=== PATIENT | male | born 1945 | race Caucasian/White ===

== ENCOUNTER 2019-11-18 11:54 | Outpatient (CLI) | payer MEDICARE, OTHER, SELFPAY ==
--- NOTE | ~2019-11-18 | XR_ITS ---
EXAMINATION: XR cervical spine 4-5V DATE: 11/18/2019 12:22 INDICATION: Neck pain. TECHNIQUE: 5 views of cervical spine were obtained. COMPARISON: None. FINDINGS: There is 19 degrees levoscoliosis of cervicothoracic spine. There is kyphosis of the inferi or cervical spine. There is 2 mm anterolisthesis of C4 on C5 and C5 on C6. There is interbody fusion at C5-C6 and C6-C7. There is mildly decreased disc height at C3-C4 and C4-C5. There is multilevel fac et joint osteoarthritis, severe on the left at C3-C4 and C4-C5 and on the right at C2-C3, C3-C4, and C4-C5. On the right, there is mild neural foraminal stenosis at C2-C3 and C4-C5 and moderate neural f oraminal stenosis at C3-C4. On the left, there is mild neural foraminal stenosis at C3-C4 and moderat e neural foraminal stenosis at C4-C5. There is mild central canal stenosis at C4-C5 and C5-C6. No pre vertebral soft tissue swelling. IMPRESSION: 1. Moderate cervical spondylosis. 2. Interbody fusion at C5-C6 and C6-C7. 3. Cervicothoracic levoscoliosis. Reviewed, dictated and finalized at location A.
== END 2019-11-18 11:55 | disposition home or self-care (01) ==
LOC: ANHIMG 12:06
PROVIDERS: PCP Family Medicine; Visit Provider Family Medicine
DX: M47.892 Other spondylosis, cervical region (principal); Z98.1 Arthrodesis status
CPT/HCPCS: 72050

== ENCOUNTER 2020-03-08 15:42 | Outpatient (CLI) | payer MEDICARE, OTHER, SELFPAY ==
--- NOTE | ~2020-03-08 | CT_ITS ---
EXAMINATION:CT lung screening DATE: 03/08/2020 16:11 INDICATION: Personal history of tobacco dependence. TECHNIQUE: Computed tomography (CT) of the chest was performed without intravenous contrast. Automate d exposure control and iterative reconstruction technique were employed. The dose-length product (DLP ) was 157.13 mGy-cm. COMPARISON: Chest CT 01/23/2019 FINDINGS: There is moderate emphysema. There are widespread peripheral reticular opacities in the georgette gs. There are subpleural bands in the lower lobes. There is mild bronchiectasis in the lower lobes. C alcified right lung nodules and calcified right hilar lymph nodes are consistent with old granulomato us disease. No pleural effusion. The heart size is normal. 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 There are coronary artery ca lcifications. No pericardial effusion. Calcifications in the spleen are consistent with old granuloma tous disease. There are healing fractures of the right eighth and ninth ribs. There are bridging endp late osteophytes at multiple levels in the spine, consistent with diffuse idiopathic skeletal hyperos tosis (DISH). There is mild chronic anterior wedging of multiple vertebral bodies. IMPRESSION: 1. Lung-RADS category 2: Benign appearance or behavior. Continue annual screening with noncontrast lo w-dose chest CT in 12 months. Reviewed, dictated and finalized at location A. IMPRESSION: 1. Lung-RADS category 2: Benign appearance or behavior. Continue annual screeni ng with noncontrast low-dose chest CT in 12 months.
== END 2020-03-08 15:43 | disposition home or self-care (01) ==
PROVIDERS: PCP Family Medicine; Visit Provider Family Medicine
DX: Z12.2 Encounter for screening for malignant neoplasm of respiratory organs (principal); Z87.891 Personal history of nicotine dependence
CPT/HCPCS: G0297

== ENCOUNTER 2020-11-13 15:50 | Emergency (ER) | payer MEDICARE, OTHER, SELFPAY ==
[2020-11-13] VITALS (12 sets, daily range): BP systolic 83–125; BP diastolic 57–78; PULSE 78–90; RESP 16–25; TEMP 36.8–37.2; O2SAT 96–99
--- NOTE | ~2020-11-13 | XR_ITS ---
EXAMINATION: XR chest 1V portable DATE: 11/13/2020 21:01 INDICATION: Found on ground by neighbors. Weakness. TECHNIQUE: frontal view of the chest was obtained. COMPARISON: Chest radiograph dated 06/03/2017 FINDINGS: Mild streaky opacities at the lateral lower lung zones and favor atelectasis or less likely mild pulm onary edema over pneumonia. No pleural effusion or pneumothorax. Cardiomediastinal silhouette is with in normal limits for AP technique. IMPRESSION: 1. Mild streaky bibasilar opacities with differential in order of likelihood including atelectasis, m ild pulmonary edema and pneumonia. Reviewed, dictated and finalized at location A. IMPRESSION: 1. Mild streaky bibasilar opacities with differential in order of likelihood in cluding atelectasis, mild pulmonary edema and pneumonia.
--- NOTE | ~2020-11-13 | CT_ITS ---
EXAMINATION: CT brain wo con DATE: 11/13/2020 21:14 INDICATION: Unwitnessed fall presenting with weakness and vertigo TECHNIQUE: Computed tomography (CT) of the head was performed without intravenous contrast. Sagittal and coronal reconstructions were performed. The mA was adjusted according to patient size. Iterative reconstruction technique was employed. The dose-length product was 605.33 mGy-cm. COMPARISON: head CT dated 12/25/2013 FINDINGS: No fracture. No acute intracranial hemorrhage, acute infarction or abnormal extra axial fluid collect ion. There is mild to moderate scattered white matter hypoattenuation consistent with chronic small v essel ischemic disease. Symmetric prominence of the sulci and ventricles consistent with mild age-kenny ropriate diffuse cerebral volume loss. No mass/mass effect. Intracranial calcified cerebral atheroscl erosis is noted. The orbits, paranasal sinuses and mastoid air cells are normal. IMPRESSION: 1. No fracture or acute intracranial process. 2. Age-related changes including mild diffuse volume loss and mild to moderate scattered white matter hypoattenuation consistent with chronic small vessel ischemic disease. Reviewed, dictated and finalized at location A. IMPRESSION: 1. No fracture or acute intracranial process. 2. Age-related changes including mild diffuse volume loss and mild to moderate scattered white matter hypoattenuation consistent with chronic small vessel isc hemic disease.
--- NOTE | 2020-11-13 15:58 | ECG_ITS ---
Measurements Intervals [place] Rate: 85 P: 52 IN: 188 QRS: -1 QRSD: 87 T: 24 QT: 350 QTc: 417 Interpretive Statements SINUS RHYTHM LOW VOLTAGE- PRECORDIAL LEADS MINIMAL Q WAVES- ANTERIOR LEADS CONSIDER INFERIOR INFARCT, AGE INDETERMINATE BORDERLINE T WAVE ABNORMALITY- ANTEROLATERAL LEADS ABNORMAL ECG Electronically Signed On 11-13-2020 16:30:31 CDT by Erik Jordan D.O.
[2020-11-13 16:27] LABS: Basophils Percent Auto 0.4 % (0.2-1.2); Eosinophils Absolute Auto 0.1 K/mm3 (0-0.3); Eosinophils Percent Auto 0.9 % (0-4.4); Hematocrit 47.7 % (42.0-52.0); Hemoglobin 16.1 g/dL (14.0-18.0); Immature Granulocyte Absolute 0.04 K/mm3 (0.00-0.031); Immature Granulocyte Percent A 0.4 % (0-0.5); Lymphocytes Absolute Auto 0.67 K/mm3 (0.9-3.2); Lymphocytes Percent Auto 6.9 % (18.3-44.2); Mean Corpuscular HGB Conc 33.8 g/dl (32-36); Mean Corpuscular Hemoglobin 30.3 pg (26-34); Mean Corpuscular Volume 89.8 fl (80-100); Mean Platelet Volume 9.9 fl (7.4-10.4); Monocytes Absolute Auto 0.5 K/mm3 (0.1-0.6); Monocytes Percent Auto 5.3 % (2.6-8.5); Neutrophils Absolute Auto 8.3 K/mm3 (1.3-6.7); Neutrophils Percent Auto 86.1 % (45.5-73.1); Platelet Count Result 209 k/mm3 (150-375); Red Blood Count 5.31 M/mm3 (4.6-6.20); Red Cell Distribution Width 13.2 % (11.5-14.5); White Blood Count 9.7 K/mm3 (4.5-10.0)
[2020-11-13 17:11] LABS: Anion Gap 10 mmol/L (8-16); Blood Urea Nitrogen 17 mg/dL (9-20); Calcium 9.5 mg/dL (8.4-10.2); Carbon Dioxide 26 mmol/L (22-30); Chloride 103 mmol/L (98-107); Estimated CRCL calculation 58 ml/min; Estimated Glomerular Filt Rate > 60; Glucose 124 mg/dL (75-110); Potassium 4.4 mmol/L (3.4-5.0); Sodium 139 mmol/L (137-145)
[2020-11-13 20:39] LABS: Troponin I < 0.012 ng/mL (0.000-0.034)
[2020-11-13] MEDS: SODIUM CHLORIDE 0.9% IV 1,000 ML 999 ML IV CONT ×2 (21:00→21:57)
[2020-11-13 21:03] LABS: Creatine Kinase 57 U/L (55-170)
--- NOTE | 2020-11-13 21:06 | PC.NURSE ---
Called and spoke to charissa in lab to add on CK @ [id number]
[2020-11-13 22:12] LABS: Add Urine Microscopic? YES; Appearance Urine Clear (Clear); Bacteria Urine Trace /hpf; Bilirubin Urine Negative (Negative); Blood Urine 2+ (Negative); Color Urine Yellow (Yellow); Glucose Urine UA Negative (Negative); Ketones Urine Negative (Negative); Leukocyte Esterase Ur Negative LEU/UL (Negative); Mucus Urine Rare /lpf; Nitrate Urine Negative (Negative); Protein Urine Negative (Negative); RBC Urine 0-2 /hpf (0-2); Specific Grav Ur 1.021 (1.001-1.035); Urobilinogen Urine Negative mg/dL (<2.0); WBC Urine 0-3 /hpf
--- NOTE | 2020-11-13 22:30 | PC.NURSE ---
Pt. able to ambulate around ed w/ steady gait.
--- NOTE | 2020-11-13 23:50 | ED.GENADULT ---
HPI - General Adult General Chief complaint: Syncope <Red Contreras PA-C - Last Filed: 11/13/20 23:57> Stated complaint: Syncopal Episode <Red Contreras PA-C - Last Filed: 11/13/20 23:57> Time Seen by Provider: 11/13/20 20:01 <Red Contreras PA-C - Last Filed: 11/13/20 23:57> Source: patient, family and RN notes reviewed <Red Contreras PA-C - Last Filed: 11/13/20 23:57> Mode of arrival: ambulatory <Red Contreras PA-C - Last Filed: 11/13/20 23:57> Limitations: dementia <Red Contreras PA-C - Last Filed: 11/13/20 23:57> History of Present Illness HPI narrative: Patient is a 75-year-old male who presents to emergency department after possible syncopal episode was found by a neighbor down in the yard patient was at home by himself has history of Alzheimer's dementia his was at work typically does okay at home by himself but did have his Covid vaccine yesterday patient on arrival is alert and oriented x2 patient denying any pain or other symptoms his notes that he is slightly more confused than normal which she can have at times when he is tired patient is otherwise been fine per family and has otherwise been well <Red Contreras PA-C - Last Filed: 11/13/20 23:57> Related Data Allergies/adverse reactions: Allergies Allergy/AdvReac Type Severity Reaction Status Date / Time No Known Allergies Allergy Verified 11/13/20 20:04 <Red Contreras PA-C - Last Filed: 11/13/20 23:57> Review of Systems Review of Systems: All systems reviewed & are unremarkable except as noted in HPI and below <Red Contreras PA-C - Last Filed: 11/13/20 23:57> [facility] Past Medical History Medical History: Medical History (Updated 11/15/20 @ 00:00 by Heather Ortiz) Alzheimer's disease Hypertension <Red Contreras PA-C - Last Filed: 11/13/20 23:57> Social History Social History: Social History (Updated 11/13/20 @ 23:52 by Red Contreras PA-C) Smoking status: Never smoker Gender identity (if verbalized by the patient): Male <Red Contreras PA-C - Last Filed: 11/13/20 23:57> Exam Narrative: Exam Narrative: GENERAL: Well-appearing, well-nourished, and in no acute distress. HEAD: Normocephalic, atraumatic. EYES: PERRLA and EOMI. ENT: Nares clear, no rhinorrhea or epistaxis. Mucous membranes moist. NECK: Supple. No adenopathy or masses. CHEST: Clear to auscultation. No respiratory distress. No wheezes rales or rhonchi HEART: Regular rate and rhythm. No murmur heard. Normal peripheral pulses. ABDOMEN: Soft, nontender, nondistended EXTREMITIES: Normal range of motion. No edema. SKIN: Warm, dry, no rash. NEURO: No focal deficits. Alert and oriented x3. Cranial nerves II through XII grossly intact. Normal speech and gait PSYCH: Normal mood and affect. <Red Contreras PA-C - Last Filed: 11/13/20 23:57> Course Course Emergency Course: Patient evaluated in the emergency department no high risk changes in the evaluation was given 2 L of normal saline patient and his are in the room she feels comfortable to take him home ABCs and vital signs intact and stable patient was offered inpatient therapy but she feels comfortable to take him home and will stay home with him tomorrow. Patient does not have any URI symptoms on exam felt unlikely to be pneumonia. Patient is not showing any signs of heart failure at this time. <Red Contreras PA-C - Last Filed: 11/13/20 23:57> Vital Signs Vital signs: Vital Signs Temperature 37.2 C 11/13/20 16:10 Pulse Rate 87 11/13/20 16:10 Respiratory Rate 16 11/13/20 16:10 Blood Pressure 110/57 L 11/13/20 16:10 Pulse Oximetry 97 11/13/20 16:10 Temperature 36.8 C 11/13/20 19:59 Pulse Rate 78 11/14/20 00:00 Respiratory Rate 28 H 11/14/20 00:00 Blood Pressure 107/65 11/14/20 00:00 Pulse Oximetry 98 11/14/20 00:00 <Red Contreras PA-C - Last File
[2020-11-14] VITALS: BP 107/65; PULSE 78; RESP 28; O2SAT 98
== END 2020-11-14 | disposition home or self-care (01) ==
PROVIDERS: Emergency Medicine Emergency Medical Services; Emergency Provider Emergency Medicine; PCP Family Medicine
DX: R55 Syncope and collapse (principal); G30.9 Alzheimer's disease, unspecified; F02.80 Dementia in other diseases classified elsewhere, unspecified severity, without behavioral disturbance, psychotic disturbance, mood disturbance, and anxiety; I10 Essential (primary) hypertension; R91.8 Other nonspecific abnormal finding of lung field; R94.31 Abnormal electrocardiogram [ECG] [EKG]
CPT/HCPCS: 36415; 70450; 71045; 80048; 81001; 82550; 84484; 85025; 93005; 96360; 99284; J7030

== ENCOUNTER 2021-02-25 08:37 | Outpatient (CLI) | payer MEDICARE, OTHER, SELFPAY ==
--- NOTE | ~2021-02-25 | CT_ITS ---
EXAMINATION: CT abdomen pelvis wo con EXAM DATE: 02/25/2021 09:38 INDICATION: Microscopic hematuria. TECHNIQUE: Spiral CT of the abdomen and pelvis was performed without contrast. Axial, coronal and sag ittal images were reviewed. The dose-length product (DLP) for this examination was 319.16 mGy-cm. T he exposure was tailored according to patient size (auto mA exposure control), and iterative reconstr uction (ASIR) was used as additional dose reduction technique. Comparison is made to prior examinatio n from 12/13/2017. FINDINGS: There is no nephrolithiasis or hydronephrosis. The prostate is unremarkable. The bladder is unremarkable. The liver, spleen, adrenal glands and pancreas are unremarkable. Gallbladder is u nremarkable. No biliary obstruction. There is no retroperitoneal or pelvic lymphadenopathy. There is moderate scattered arteriosclerotic disease. Small umbilical fat-containing hernia. The appendix is normal. The stomach and small bowel are unremarkable. There is expected amount of c olonic stool. No free intraperitoneal gas. The heart is normal in size. There are no pericardial or pleural effusions. Basilar subpleural banding. There are no osteoblastic or osteolytic lesions identified. There is right hip arthroplasty. IMPRESSION: No nephrolithiasis, hydronephrosis or acute intra-abdominal findings. Reviewed, dictated and finalized at location B. IMPRESSION: No nephrolithiasis, hydronephrosis or acute intra-abdominal finding s.
== END 2021-02-25 08:38 | disposition home or self-care (01) ==
LOC: ANHIMG 08:42
PROVIDERS: PCP Family Medicine; Visit Provider Urology
DX: R31.29 Other microscopic hematuria (principal); K42.9 Umbilical hernia without obstruction or gangrene
CPT/HCPCS: 74176

== ENCOUNTER 2021-04-23 17:21 | Outpatient (CLI) | payer MEDICARE, OTHER, SELFPAY ==
--- NOTE | ~2021-04-23 | XR_ITS ---
EXAMINATION: XR hip RT min 2V DATE: 04/23/2021 17:45 INDICATION: Lateral right hip pain post fall TECHNIQUE: Anteroposterior and cross-table lateral views of the right hip were obtained. COMPARISON: CT dated 02/25/2021 FINDINGS: Noncemented right total hip arthroplasty in near anatomic alignment. No evident asymmetric polyethyle ne liner wear. There is small amount of increased lucency with separation of the prosthesis from the thin sclerotic bone margin of the to 3 mm in Gruen zone 8 along the anterior margin of the proximal f emoral stem. No abnormal lucency along the acetabular component. No fracture. Mild lower lumbar spond ylosis. A few phleboliths in the left hemipelvis. IMPRESSION: 1. Right total hip arthroplasty with mild increased periprosthetic lucency isolated to Gruen zone 8 w hich raises some suspicion for but is not diagnostic of loosening. Recommend correlation with any regla or postoperative imaging. 2. No acute osseous abnormality. Reviewed, dictated and finalized at location A. ER AUTOMATIC IMPRESSION: 1. Right total hip arthroplasty with mild increased periprosthetic lucency isol ated to Gruen zone 8 which raises some suspicion for but is not diagnostic of l oosening. Recommend correlation with any prior postoperative imaging. 2. No acute osseous abnormality.
== END 2021-04-23 17:22 | disposition home or self-care (01) ==
LOC: ANHIMG 17:28
PROVIDERS: PCP Family Medicine; Visit Provider Family Medicine
DX: S79.911A Unspecified injury of right hip, initial encounter (principal)
CPT/HCPCS: 73502

== ENCOUNTER 2021-07-21 17:36 | Inpatient (IN) | payer MEDICARE, OTHER, SELFPAY ==
--- NOTE | ~2021-07-21 | XR_ITS ---
EXAMINATION: XR hip RT 2V w AP pelvis DATE: 07/21/2021 19:58 INDICATION: Right-sided hip pain post fall TECHNIQUE: Anteroposterior view of the pelvis and anteroposterior and frog-leg lateral views of the r ight hip were obtained. COMPARISON: None. FINDINGS: Right total hip arthroplasty which appears unchanged in near-anatomic alignment. No periprosthetic gama cency to suggest loosening. No fracture. Mild left hip osteoarthritis. Mild lower lumbar spondylosis. Phleboliths in the left hemipelvis. IMPRESSION: 1. Stable appearance of a right total hip arthroplasty. No acute osseous abnormality. Reviewed, dictated and finalized at location A. LE CARRIER IMPRESSION: 1. Stable appearance of a right total hip arthroplasty. No acute osseous abnorm ality.
--- NOTE | ~2021-07-21 | XR_ITS ---
EXAMINATION: XR chest 1V portable DATE: 07/21/2021 20:49 INDICATION: Anticoagulated individual with early onset of dementia post fall TECHNIQUE: frontal view of the chest was obtained. COMPARISON: Chest radiograph dated 11/13/2020 and 03/08/2020 FINDINGS: Consider mild linear opacities in the right mid to lower and left lower lung zones consistent with di scoid atelectasis/scarring. No new airspace opacities, pulmonary edema, pleural effusion or pneumotho rax. The cardiomediastinal silhouette is normal. Old healed right eighth and ninth rib fractures. IMPRESSION: 1. No significant change in scattered linear discoid atelectasis/scarring the right mid and bilateral lower lung zones Reviewed, dictated and finalized at location A. NISTRATIVE FELLOW IMPRESSION: 1. No significant change in scattered linear discoid atelectasis/scarring the r ight mid and bilateral lower lung zones
--- NOTE | ~2021-07-21 | CT_ITS ---
EXAMINATION: CT brain wo con DATE: 07/21/2021 20:07 INDICATION: Dementia presenting post fall. TECHNIQUE: Computed tomography (CT) of the head was performed without intravenous contrast. Sagittal and coronal reconstructions were performed. The mA was adjusted according to patient size. Iterative reconstruction technique was employed. The dose-length product was 605.33 mGy-cm. COMPARISON: head CT dated 11/13/2020 FINDINGS: Fracture. No acute intracranial hemorrhage, acute infarction or abnormal extra axial fluid collection . There is mild to moderate scattered white matter hypoattenuation consistent with chronic small vess el ischemic disease. Symmetric prominence of the sulci and ventricles consistent with mild age-approp riate diffuse cerebral volume loss. No mass/mass effect. The orbits and mastoid air cells are normal . Mild mucosal thickening the left ethmoid and right maxillary sinuses. IMPRESSION: 1. No fracture or acute intracranial process. 2. Age-related changes including mild diffuse volume loss and mild to moderate scattered white matter hypoattenuation consistent with chronic small vessel ischemic disease. Reviewed, dictated and finalized at location A. ER CHARGING TOOL SETTER IMPRESSION: 1. No fracture or acute intracranial process. 2. Age-related changes including mild diffuse volume loss and mild to moderate scattered white matter hypoattenuation consistent with chronic small vessel isc hemic disease.
--- NOTE | ~2021-07-21 | CT_ITS ---
EXAMINATION: CT hip RT wo con DATE: 07/23/2021 10:07 INDICATION: Right hip pain. TECHNIQUE: Computed tomography (CT) of the right hip was performed without intravenous contrast. Auto mated exposure control and iterative reconstruction technique were employed. The dose-length product was 307.43 mGy-cm. COMPARISON: Right hip radiographs 07/21/2021, CT abdomen and pelvis 02/25/21, 12/13/17 FINDINGS: There is a total right hip arthroplasty in near-anatomic alignment. There is 2.5 cm lucency adjacent to the proximal femoral component anteriorly. No fracture. IMPRESSION: 1. Total right hip arthroplasty with 2.5 mm lucency adjacent to the proximal femoral component anteri elaine, consistent with loosening, stable from 12/13/17. Reviewed, dictated and finalized at location A. CONDITIONER MACHINE IMPRESSION: 1. Total right hip arthroplasty with 2.5 mm lucency adjacent to the proximal fe moral component anteriorly, consistent with loosening, stable from 12/13/17.
--- NOTE | ~2021-07-21 | XR_ITS ---
EXAMINATION: XR knee RT 2V EXAM DATE: 07/24/2021 18:22 INDICATION: Fall, knee pain. TECHNIQUE: Frontal and lateral projections of the right knee. Comparison is made to prior examinatio n from 07/21/2021. FINDINGS: There is acute closed posttraumatic right lateral tibial plateau fracture identified on th e frontal projection. There is a moderate-sized right knee hemarthrosis. Small to moderate-sized kapoor llar enthesopathy. IMPRESSION: Acute nondisplaced right lateral tibial plateau fracture. Reviewed, dictated and finalized at location G. FING PROGRAM MANAGER
--- NOTE | ~2021-07-21 | XR_ITS ---
EXAMINATION: XR knee RT 3V DATE: 07/21/2021 18:20 INDICATION: Swelling and bruising at the anterior right knee post fall TECHNIQUE: Anteroposterior, oblique and crosstable lateral views of the right knee were obtained COMPARISON: None. FINDINGS: Alignment is normal. No fracture. Osteoarthritis with mild joint space narrowing the medial compartm ent which could be underestimated on nonweightbearing imaging. Small right knee joint effusion withou t evident layering lipohemarthrosis. Enthesophyte at the proximal pole of the patella. Mild prepatell ar soft tissue swelling. IMPRESSION: 1. Small right knee joint effusion. No acute osseous abnormality. Reviewed, dictated and finalized at location A. ESSOR OF POLITICAL SCIENCE
--- NOTE | ~2021-07-21 | CT_ITS ---
EXAMINATION: CT knee RT wo con DATE: 07/23/2021 10:07 INDICATION: Right knee pain. TECHNIQUE: Computed tomography (CT) of the right knee was performed without intravenous contrast. Aut omated exposure control and iterative reconstruction technique were employed. The dose-length product was 584.37 mGy-cm. COMPARISON: Right knee radiographs 07/21/2021 FINDINGS: There is a fracture of proximal tibia including a nondisplaced sagittal oblique fracture of lateral tibial plateau and an avulsion fracture of the posterior cruciate ligament attachment site. There is mild osteoarthritis of medial, lateral, and patellofemoral compartments. There is a moderate -sized hemarthrosis. IMPRESSION: 1. Fracture of proximal tibia including a nondisplaced sagittal oblique fracture of lateral tibial pl ateau and an avulsion fracture of the posterior cruciate ligament attachment site. 2. Mild right knee osteoarthritis. 3. Moderate-sized right knee hemarthrosis. Reviewed, dictated and finalized at location A. ING MACHINE ASSEMBLER IMPRESSION: 1. Fracture of proximal tibia including a nondisplaced sagittal oblique fractur e of lateral tibial plateau and an avulsion fracture of the posterior cruciate ligament attachment site. 2. Mild right knee osteoarthritis. 3. Moderate-sized right knee hemarthrosis.
--- NOTE | ~2021-07-21 | XR_ITS ---
EXAMINATION: XR hip RT 2V w AP pelvis EXAM DATE: 07/24/2021 18:22 INDICATION: Fall, hip pain . TECHNIQUE: Left hip frontal, 'frog leg' projections for interpretation. Frontal projection pelvis. C omparison is made to prior examination from 07/21/2021. FINDINGS: There is total right hip arthroplasty in expected position, no hardware fracture. There is moderate left hip primary osteoarthritis. There are no acute fractures identified. Calcifications in the pelvis are believed to be phleboliths. IMPRESSION: No acute pelvic or right hip fracture. Reviewed, dictated and finalized at location G. EFFICIENCY SUPERVISOR
[2021-07-21 17:38] VITALS: BP 119/62; PULSE 70; RESP 20; TEMP 36.9; O2SAT 96
[2021-07-21] MEDS: ACETAMINOPHEN 325 MG TABLET 650 MG PO (18:03)
[2021-07-21 20:03] LABS: Add Urine Microscopic? YES; Appearance Urine Clear (Clear); Bacteria Urine Trace /hpf; Bilirubin Urine Negative (Negative); Blood Urine 1+ (Negative); Color Urine Yellow (Yellow); Glucose Urine UA Negative (Negative); Ketones Urine Negative (Negative); Leukocyte Esterase Ur Negative LEU/UL (Negative); Mucus Urine Rare /lpf; Nitrate Urine Negative (Negative); Protein Urine Negative (Negative); Squamous Epithelial Cell Urine Rare /hpf (Few); Urobilinogen Urine Negative mg/dL (<2.0); WBC Urine 0-3 /hpf
--- NOTE | 2021-07-21 20:21 | ED.GENADULT ---
HPI - General Adult General Chief complaint: Extremity Injury, Lower Stated complaint: knee pain Time Seen by Provider: 07/21/21 17:37 Source: patient, family, EMS and RN notes reviewed Mode of arrival: EMS Limitations: dementia History of Present Illness HPI narrative: Patient is 76-year-old male with a history of dementia that presents with right knee injury patient was walking up the stairs when he fell forward injuring the right knee he has been unable to bear weight since he has a history of dementia and is a limited historian she notes that he has been in normal mentation since the incident denies any recent illness or other complaints and on arrival he is in the room nondistressed and does not appear uncomfortable Related Data Allergies Allergy/AdvReac Type Severity Reaction Status Date / Time No Known Allergies Allergy Verified 07/21/21 17:44 Review of Systems Review of Systems: Limited historian secondary to dementia [facility] Past Medical History Medical History Alzheimer's disease Hypertension Social History Social History Smoking status: Never smoker Gender identity (if verbalized by the patient): Male Exam Narrative: GENERAL: Well-appearing, well-nourished, and in no acute distress. HEAD: Normocephalic, atraumatic. EYES: PERRLA and EOMI. ENT: Nares clear, no rhinorrhea or epistaxis. Mucous membranes moist. NECK: Supple. No adenopathy or masses. CHEST: Clear to auscultation. No respiratory distress. No wheezes rales or rhonchi HEART: Regular rate and rhythm. No murmur heard. Normal peripheral pulses. ABDOMEN: Soft, nontender, nondistended EXTREMITIES: Tenderness of the right knee joint no deformities noted remainder of extremities palpated nontender SKIN: Warm, dry, no rash. NEURO: No focal deficits. Alert and oriented x2. Neurovascularly intact. Capillary refill less than 2 seconds PSYCH: Normal mood and affect. Course Course Emergency Course: Patient was unable to ambulate attributed to pain he will be placed in hospital given the risk and safety concerns with his unsteady gait and high likelihood for falls his leukocytosis could be stress reaction no attributable infection was identified he is afebrile nontoxic-appearing nondistressed no high risk changes in the blood work or imaging will be placed in hospital Consultations Consultation #1: Discussed case with the hospitalist who has agreed to accept the patient Date: 07/21/21 Time: 20:57 Vital Signs Vital signs: Vital Signs Temperature 98.4 F 07/21/21 17:38 Pulse Rate 70 07/21/21 17:38 Respiratory Rate 20 07/21/21 17:38 Blood Pressure 119/62 07/21/21 17:38 Pulse Oximetry 96 07/21/21 17:38 Temperature 98.4 F 07/21/21 17:38 Pulse Rate 70 07/21/21 17:38 Respiratory Rate 20 07/21/21 17:38 Blood Pressure 119/62 07/21/21 17:38 Pulse Oximetry 96 07/21/21 17:38 Medical Decision Making MDM Narrative Medical decision making narrative: Patients injury or pain is consistent with musculoskeletal etiology. No signs of neurological or vascular compromise on exam. Compartments and tisues are soft without signs of compartment syndrome. Patient was unable to ambulate unsteady on his feet given the safety concerns he will be placed in hospital he and his are agreeing with the treatment plan Vital Signs Vital Signs: Vital Signs Temperature 98.4 F 07/21/21 17:38 Pulse Rate 70 07/21/21 17:38 Respiratory Rate 20 07/21/21 17:38 Blood Pressure 119/62 07/21/21 17:38 Pulse Oximetry 96 07/21/21 17:38 Temperature 98.4 F 07/21/21 17:38 Pulse Rate 70 07/21/21 17:38 Respiratory Rate 20 07/21/21 17:38 Blood Pressure 119/62 07/21/21 17:38 Pulse Oximetry 96 07/21/21 17:38 Lab Data Result diagrams: 07/21/21 20:21 07/21/21 20:21 Labs: Lab Results
[2021-07-21 20:30] LABS: Basophils Absolute Auto 0.1 K/mm3 (0.0-0.1); Basophils Percent Auto 0.5 % (0.2-1.2); Eosinophils Absolute Auto 0.3 K/mm3 (0-0.3); Hemoglobin 15.4 g/dL (14.0-18.0); Immature Granulocyte Absolute 0.07 K/mm3 (0.00-0.031); Immature Granulocyte Percent A 0.5 % (0-0.5); Lymphocytes Absolute Auto 2.52 K/mm3 (0.9-3.2); Lymphocytes Percent Auto 16.7 % (18.3-44.2); Mean Corpuscular HGB Conc 33.5 g/dl (32-36); Mean Corpuscular Hemoglobin 30.8 pg (26-34); Mean Platelet Volume 9.7 fl (7.4-10.4); Monocytes Percent Auto 6.8 % (2.6-8.5); Neutrophils Absolute Auto 11.1 K/mm3 (1.3-6.7); Neutrophils Percent Auto 73.5 % (45.5-73.1); Platelet Count Result 220 k/mm3 (150-375); Red Cell Distribution Width 13.5 % (11.5-14.5); White Blood Count 15.1 K/mm3 (4.5-10.0)
[2021-07-21 20:50] LABS: Anion Gap 5 mmol/L (8-16); Blood Urea Nitrogen 19 mg/dL (9-20); Calcium 8.6 mg/dL (8.4-10.2); Carbon Dioxide 26 mmol/L (22-30); Chloride 105 mmol/L (98-107); Estimated CRCL calculation 53 ml/min; Estimated Glomerular Filt Rate > 60; Glucose 129 mg/dL (65-110); Potassium 3.9 mmol/L (3.4-5.0); Sodium 136 mmol/L (137-145)
[2021-07-21] MEDS: KETOROLAC 30 MG/ML VIAL (*BKC) IV PUSH (21:04)
[2021-07-21 21:48] VITALS: BP 104/50; PULSE 67; RESP 20; O2SAT 95
[2021-07-21 22:00] VITALS: BP 118/60; PULSE 70; RESP 16; TEMP 36.2; O2SAT 97
--- NOTE | 2021-07-21 22:21 | ADMGEN ---
This patient, Talat Zaragoza, was admitted to [facility] Surg Room 325-01. Patient/family oriented to hospital policies and general routines including ID bracelet, bed and alarms, visiting hours, pain management, procedures, bathroom and other care routines, personal items, smoking policy, room service/diet, and visiting hours. Information on how to activate the Rapid Response Team has been discussed. Patient/Family are encouraged to report perceived risks to care and to ask questions if they do not understand what they are told or what they should do.
[2021-07-21] MEDS: LACTATED RINGERS 1,000 ML 75 ML IV CONT (23:51)
[2021-07-22] VITALS: BP 118/60; PULSE 71; RESP 16; TEMP 36.4; O2SAT 96
[2021-07-22] MEDS: FAMOTIDINE 20 MG/2 ML VIAL IV PUSH (00:25)
--- NOTE | 2021-07-22 00:43 | PC.NURSE ---
07/21/2021 2205 pt arrived to floor stable to [facility] room 325-1. pt pleasantly confused unable to comprehend.
--- NOTE | 2021-07-22 01:58 | PC.NURSE ---
07/22/2021 0147 pt pulled out his iv while this nurse was in the room. pt continues to climb out of bed with unsteady gait.
--- NOTE | 2021-07-22 01:59 | PC.NURSE ---
07/22/2021 0150 contacted household appliance installer regarding hospitalist ordered for pt to have a sitter.
[2021-07-22 04:00] VITALS: BP 118/89; PULSE 67; RESP 16; TEMP 37.1; O2SAT 97
[2021-07-22 07:04] LABS: Basophils Absolute Auto 0.1 K/mm3 (0.0-0.1); Basophils Percent Auto 0.5 % (0.2-1.2); Eosinophils Absolute Auto 0.2 K/mm3 (0-0.3); Eosinophils Percent Auto 1.7 % (0-4.4); Hematocrit 45.4 % (42.0-52.0); Hemoglobin 15.2 g/dL (14.0-18.0); Immature Granulocyte Absolute 0.06 K/mm3 (0.00-0.031); Immature Granulocyte Percent A 0.5 % (0-0.5); Lymphocytes Absolute Auto 3.06 K/mm3 (0.9-3.2); Mean Corpuscular HGB Conc 33.5 g/dl (32-36); Mean Corpuscular Hemoglobin 30.9 pg (26-34); Mean Corpuscular Volume 92.3 fl (80-100); Mean Platelet Volume 9.9 fl (7.4-10.4); Monocytes Percent Auto 8.3 % (2.6-8.5); Neutrophils Absolute Auto 7.8 K/mm3 (1.3-6.7); Platelet Count Result 212 k/mm3 (150-375); Red Blood Count 4.92 M/mm3 (4.6-6.20); Red Cell Distribution Width 13.3 % (11.5-14.5); White Blood Count 12.2 K/mm3 (4.5-10.0)
[2021-07-22 07:17] LABS: Anion Gap 5 mmol/L (8-16); Blood Urea Nitrogen 22 mg/dL (9-20); Calcium 8.4 mg/dL (8.4-10.2); Carbon Dioxide 26 mmol/L (22-30); Chloride 106 mmol/L (98-107); Estimated CRCL calculation 49 ml/min; Estimated Glomerular Filt Rate 59; Glucose 122 mg/dL (65-110); Potassium 4.1 mmol/L (3.4-5.0); Sodium 137 mmol/L (137-145)
[2021-07-22 08:00] VITALS: BP 122/64; PULSE 85; RESP 18; TEMP 36.9; O2SAT 96
[2021-07-22 08:07] LABS: Glucose Point of Care 136 mg/dl (65-105)
[2021-07-22 09:56] VITALS: PULSE 80
[2021-07-22] MEDS: DONEPEZIL HCL 5 MG TABLET PO (09:56)
[2021-07-22] MEDS: SERTRALINE HCL 50 MG TABLET 150 MG PO (09:56)
[2021-07-22] MEDS: PRAVASTATIN SODIUM 20 MG TABLET 40 MG PO (09:56)
[2021-07-22] MEDS: MEMANTINE 10 MG TABLET PO ×2 (09:56→16:54)
[2021-07-22] MEDS: METOPROLOL SUCCINATE EXT REL 25 MG TABCR PO (09:56)
[2021-07-22] MEDS: ENALAPRIL MALEATE 2.5 MG TABLET PO (09:56)
[2021-07-22] MEDS: FAMOTIDINE 20 MG TABLET PO (11:39)
[2021-07-22 12:00] VITALS: BP 102/56; PULSE 88; RESP 20; TEMP 37.1; O2SAT 98
[2021-07-22 14:00] VITALS: PULSE 77; RESP 20; TEMP 37.1; O2SAT 97
[2021-07-22 14:02] LABS: SARS-CoV-2 RNA PCR Negative
--- NOTE | 2021-07-22 16:06 | PM.IMHP ---
H&P: HPI History of Present Illness Date/Time: 07/22/21 16:06 <Ava Ward PA-C - Last Filed: 07/22/21 16:42> Chief Complaint: Fall <Ava Ward PA-C - Last Filed: 07/22/21 16:42> Narrative: Date of admission: 07/21/2021 Date of service: 07/22/2021 Talat Zaragoza is a 76-year-old male with a history of Alzheimer's dementia, hypertension, CAD, CVA, COPD, depression, anxiety who presented to the emergency department on 07/21/2021 for evaluation following a fall at home. The patient's is at the bedside who provides history as the patient is a poor historian given his dementia. She states that he was walking up the steps in their [facility] room when he stumbled and fell, landing on right knee. His was not able to assist him, therefore she called a friend who also could not get him up, so at that time EMS was summoned. On presentation to the ED, his vital signs were stable, white blood cell count [id number], additional laboratory workup unremarkable, UA without concerns for infection, knee x-ray with small right knee joint effusion without osseous abnormalities, hip/pelvis x-ray with no acute findings, and head CT with diffuse volume loss consistent with chronic small-vessel ischemic disease but no acute intracranial findings. On my encounter with the patient, he is doing well. He does not endorse knee pain but his states that when he got up to the chair today he complained of right knee discomfort as well as right hip discomfort. She states that he has had issues with instability in the past and recently completed physical therapy in May for the same issue. Earlier this morning he was having issues with agitation and did require a patient's sitter. This improved when his arrived and she states resolved when he woke up from a nap this afternoon. The patient is being admitted to the hospitalist service for observation. Supervising physician for this history and physical is Dr. Kathy Bee <Ava Ward PA-C - Last Filed: 07/22/21 16:42> Review of Systems Review of Systems: Patient denies shortness of breath, cough, chest pain, abdominal pain, nausea, vomiting, dizziness, lightheadedness, weakness, dysuria, hematuria, urgency, frequency, diarrhea, headache, body aches, weight loss. Reports having a regular bowel movement yesterday. Appetite has been good. Completed both COVID vaccinations but has not received booster. Denies any recent sick contacts. <Ava Ward PA-C - Last Filed: 07/22/21 16:42> [facility] Past Medical History Medical History: Medical History (Updated 07/24/21 @ 14:39 by Ava Ward PA-C) Alzheimer's disease COPD (chronic obstructive pulmonary disease) Coronary artery disease CVA (cerebral vascular accident) Depression with anxiety Hypertension Neuropathy Tobacco abuse Urinary incontinence <Ava Ward PA-C - Last Filed: 07/22/21 16:42> Surgical History Surgical History: Surgical History (Updated 07/22/21 @ 16:35 by Ava Ward PA-C) H/O heart artery stent History of fusion of cervical spine History of right hip replacement 2008 <Ava Ward PA-C - Last Filed: 07/22/21 16:42> Family History Family History: Family History (Updated 07/21/21 @ 22:35 by Vania Mercer RN) Father Chronic obstructive pulmonary disease Mother Acute myocardial infarction <Ava Ward PA-C - Last Filed: 07/22/21 16:42> Social History Social History: Social History (Updated 07/22/21 @ 16:41 by Ava Ward PA-C) Social History: Mr. Zaragoza lives at home with his who assist him in his daily activities. His primary care provider is Dr. Cristo Charles. He designates his , Magdalena, as his surrogate decision maker and he would like to be a full code Smoking packs per day: 0.5 Smoking cigarettes per day: 10.0 Years smoked: 45 Smoking pack-years: 22.50 Smoking status: Current ever
[2021-07-22 16:40] LABS: Glucose Point of Care 118 mg/dl (65-105)
[2021-07-22] MEDS: OLANZapine 10 MG INJ VIAL 5 MG IM (18:47)
--- NOTE | 2021-07-22 21:40 | PC.NURSE ---
Pt was noncompliant during assessment and 2100 medication pass. Sitter present at bedside.
[2021-07-23 06:00] VITALS: BP 106/56; PULSE 66; RESP 16; TEMP 36.3; O2SAT 100
[2021-07-23 06:42] LABS: Hematocrit 44.5 % (42.0-52.0); Mean Corpuscular HGB Conc 33.7 g/dl (32-36); Mean Corpuscular Volume 91.9 fl (80-100); Mean Platelet Volume 9.9 fl (7.4-10.4); Platelet Count Result 222 k/mm3 (150-375); Red Blood Count 4.84 M/mm3 (4.6-6.20); Red Cell Distribution Width 13.3 % (11.5-14.5); White Blood Count 10.5 K/mm3 (4.5-10.0)
[2021-07-23 06:57] LABS: Hemoglobin A1C 6.1 % (<5.7)
[2021-07-23 07:02] LABS: Anion Gap 7 mmol/L (8-16); Blood Urea Nitrogen 17 mg/dL (9-20); Calcium 8.9 mg/dL (8.4-10.2); Carbon Dioxide 26 mmol/L (22-30); Chloride 107 mmol/L (98-107); Estimated CRCL calculation 53 ml/min; Estimated Glomerular Filt Rate > 60; Glucose 132 mg/dL (65-110); Potassium 4.3 mmol/L (3.4-5.0); Sodium 140 mmol/L (137-145)
[2021-07-23 08:00] VITALS: O2SAT 100
[2021-07-23 08:08] LABS: Glucose Point of Care 130 mg/dl (65-105)
[2021-07-23] MEDS: SERTRALINE HCL 50 MG TABLET 150 MG PO (08:11)
[2021-07-23] MEDS: PRAVASTATIN SODIUM 20 MG TABLET 40 MG PO (08:12)
[2021-07-23] MEDS: MEMANTINE 10 MG TABLET PO ×2 (08:12→17:27)
[2021-07-23] MEDS: DONEPEZIL HCL 5 MG TABLET PO (08:12)
[2021-07-23] MEDS: FAMOTIDINE 20 MG TABLET PO ×2 (08:12→20:51)
[2021-07-23 08:13] VITALS: PULSE 70
[2021-07-23] MEDS: ENALAPRIL MALEATE 2.5 MG TABLET PO (08:13)
[2021-07-23] MEDS: METOPROLOL SUCCINATE EXT REL 25 MG TABCR PO (08:13)
--- NOTE | 2021-07-23 09:28 | PM.IMPN ---
Progress Note: A&P Assessment and Plan (1) Fall: Code(s): W19.XXXA - Unspecified fall, initial encounter Status: Acute Assessment and Plan: Fall while walking up the stairs Patient has history of gait instability Appreciate PT/OT eval Fall precautions implemented (2) Injury of knee, right: Code(s): S89.91XA - Unspecified injury of right lower leg, initial encounter Status: Acute Assessment and Plan: Patient fell on to right knee and reported right knee pain Radiographs without findings of osseous abnormalities Discussed case with orthopedic surgeon, Dr. Salgado on 07/22. Will proceed with CT of the right knee for further evaluation in light of positive Stinchfield test, awaiting CT today Small right knee joint effusion on radiographs. Await further evaluation with knee CT Supportive care. Elevate extremity. Ice. Analgesics available as needed (3) History of right hip replacement: Code(s): Z96.641 - Presence of right artificial hip joint Status: Inactive Assessment and Plan: History of right hip replacement in 2008 Patient complains of right hip pain with weight-bearing Stinchfield test elicits right hip pain Discussed case with orthopedic surgeon, Dr. Salgado. Recommend hip CT to evaluate for periprosthetic fracture, awaiting CT today Consider orthopedic surgery consultation depending on results (4) Gait instability: Code(s): R26.81 - Unsteadiness on feet Status: Acute Assessment and Plan: Recently completed physical therapy for gait instability and May. Fall precautions as above Continue PT/OT (5) Agitation due to dementia: Code(s): F03.91 - Unspecified dementia with behavioral disturbance Status: Acute Assessment and Plan: Resolved. Patient noted to be agitated yesterday morning Patient is calm and cooperative during my exam, he is in good spirits Continue with frequent reorientation (6) Alzheimer's disease: Code(s): G30.9 - Alzheimer's disease, unspecified; F02.80 - Dementia in other diseases classified elsewhere without behavioral disturbance Status: Inactive Assessment and Plan: Patient is A&O to self only. reports he is consistent with his baseline He is established with a memory specialist at [facility]. Recently had a six-month follow-up during which progression of disease was noted. Continue donepezil and memantine (7) Prediabetes: Code(s): R73.03 - Prediabetes Status: Acute Assessment and Plan: Fasting blood sugars noted to be elevated, therefore A1c checked and was elevated at 6.1 He will need dietary and lifestyle modifications implemented and follow up with PCP for further blood sugar monitoring Subjective Date/time seen: 07/23/21 09:28 Interval history: Date of service: 07/23/2021 Talat Zaragoza is a 76-year-old male with a history of Alzheimer's dementia, hypertension, CAD, CVA, COPD, depression, anxiety who is seen in follow-up for right knee and hip pain after a fall. He is a poor historian due to his dementia. He is feeling well today. He does endorse a little bit of discomfort in his right hip. He cannot recall if he has been up out of bed today to bear weight on the leg. He states he did not eat breakfast. He denies shortness of breath, cough, abdominal pain, nausea, or vomiting. Review of Systems Review of Systems: All systems reviewed & are unremarkable except as noted in HPI and below Exam Narrative: General: Well-nourished, well-appearing 76 year-old male, sitting up in bed, comfortable, NARD Neuro: awake, alert and oriented to self, speech clear, follow commands, no focal neuro deficits noted, pleasantly confused HEENMT: normocephalic, atraumatic, EOMI, sclerae anicteric, moist oral mucosa Respiratory: clear to auscultation bilaterally, nonlabored breathing Cardio: regular rate, regular rhy
--- NOTE | 2021-07-23 10:33 | PCPTNOTE ---
Per RN: hold on therapy this AM until CT results come in. Will continue per plan of care.
[2021-07-23 11:25] LABS: Glucose Point of Care 176 mg/dl (65-105)
[2021-07-23 14:00] VITALS: BP 121/68; PULSE 81; RESP 20; TEMP 36.5; O2SAT 92
--- NOTE | 2021-07-23 17:30 | PM.CNOR ---
Assessment and Plan Additional Plan Patient is a 76-year-old gentleman was a patient of Dr. Charles who came into the hospital the day before yesterday complaining of right knee pain. He had a fall onto his right knee day before yesterday. He has dementia and does not communicate effectively but has shown that he is unable to bear weight on the right leg complaining of knee pain. He had x-rays of the right hip and pelvis and the right knee done yesterday which showed no evidence of fracture. Total hip replacement from Dr. Martinez at [facility] 2009 present on the right hip with some mild bone prosthesis radiolucency around the proximal part of the stem but no evidence of fracture or subsidence. X-rays of the right knee showed an effusion. CT scan of right hip and right knee was performed earlier today which demonstrates no acute abnormality such as fracture in the right hip. The lucency around the proximal part of the femoral stem is evident but there is no lucency around the distal 1/2 of the stem suggesting that it is well-fixed. CT scan of the right knee demonstrates a hairline crack vertically in the lateral tibial plateau. This to be classified as a Schatzker type 3 fracture completely nondisplaced. This is seen on the coronal reconstructions. On the sagittal reconstructions and the axials 1 could see avulsion flakes midline posterior tibial plateau which indicates of motion fracture of tibial insertion of posterior cruciate ligament. The flakes are displaced a few mm proximally. On examination today he already has the brace in place. They ordered it earlier this afternoon and it has already been delivered. He denies any numbness or tingling in his right foot to knee is able to dorsiflex plantar flex his ankle and toes without difficulty. He has a 2+ dorsalis pedis pulse. He is able do a straight leg raise wearing the brace with only mild discomfort at the knee. Rotation of the hip does not cause discomfort at this time. I had a long discussion with patient and his . He is a very pleasant gentleman and very useful for his age but he does have rather significant Alzheimer's dementia. He has history of stroke in the past which may have contributed. He has a history of 5 stents the last 1 in approximately 1999. He takes aspirin and Plavix. I suspect that he is on the additional Plavix for prevention of stroke. I have discussed that it is possible to have a deep venous thrombosis as a result of the leg being mobilized even when on aspirin and Plavix. My preferred DVT prophylaxis medication is Eliquis 2.5 mg twice daily but I would be worried that this might be a risk for bleeding complications when added to both aspirin and Plavix. I have discussed with his that we commonly combine aspirin and Eliquis. It is possible to combine aspirin Plavix and Eliquis in patients in whom it is absolutely necessary. I think an alternative would be to use lower dose Lovenox 40 mg subQ once daily in addition to the aspirin and Plavix and that is what I am going to order for him for 5 weeks. I would expect that he will be allowed to advance to full weight-bearing at 6 weeks. He will be immobilized with the knee in extension which keeps the PCL in its most relaxed position to allow the avulsion fragments to heal in place with the least amount of displacement and this will hopefully result in the least degree of residual posterior cruciate ligament laxity. After 6 weeks we will allowed to be weight-bearing as tolerated and initiate range of motion. He has the brace locked in extension. Because of his dementia it will be difficult for him to adjudication specialist toe-touch weight-bearing and I think it would be safest for her to be nonweightbearing will ask physical therapy to work with him on this. His is concerned that he will not be compliant and if he is unable to understand the instructions well and may be best for him to go into a rehab facility for 6 weeks for and convalesc
[2021-07-23] MEDS: ACETAMINOPHEN 500 MG TABLET 1000 MG PO (18:07)
[2021-07-23] MEDS: OLANZapine 10 MG INJ VIAL 5 MG IM (20:51)
[2021-07-23 21:41] VITALS: BP 114/71; PULSE 73; RESP 18; TEMP 36.7; O2SAT 90
--- NOTE | 2021-07-23 23:15 | PC.NURSE ---
Pt anxious, throwing blankets across the room, restless, and attempting to get out of bed. Pt kept asking for his . Youth Support Worker helped pt call . Called [employer]URNACE INSTALLER REPAIRER Isabella Nathan regarding the patient's change condition. Youth Support Worker put new order in AUG.
[2021-07-23] MEDS: WATER, STERILE FOR INJECTION 10 ML VIAL XX (23:22)
[2021-07-24 06:00] VITALS: BP 123/82; PULSE 60; RESP 18; TEMP 36; O2SAT 92
[2021-07-24 07:28] LABS: Vitamin D 25 Hydroxy 38.1 ng/mL
[2021-07-24] MEDS: ACETAMINOPHEN 500 MG TABLET 1000 MG PO ×3 (08:35→21:27)
[2021-07-24] MEDS: SERTRALINE HCL 50 MG TABLET 150 MG PO (08:35)
[2021-07-24 08:36] VITALS: PULSE 62
[2021-07-24] MEDS: ENALAPRIL MALEATE 2.5 MG TABLET PO (08:36)
[2021-07-24] MEDS: PRAVASTATIN SODIUM 20 MG TABLET 40 MG PO (08:36)
[2021-07-24] MEDS: METOPROLOL SUCCINATE EXT REL 25 MG TABCR PO (08:36)
[2021-07-24] MEDS: MEMANTINE 10 MG TABLET PO ×2 (08:36→17:56)
[2021-07-24] MEDS: DONEPEZIL HCL 5 MG TABLET PO (08:36)
[2021-07-24] MEDS: FAMOTIDINE 20 MG TABLET PO ×2 (08:37→21:27)
[2021-07-24] MEDS: ENOXAPARIN 40 MG/0.4 ML SYRINGE SUB-Q (11:09)
--- NOTE | 2021-07-24 12:14 | PC.NURSE ---
On 07/24/21, the student, [Luzmaria Henson ], provided care and completed [facility] documentation on this patient. I have reviewed the student's documentation and agree with the findings.
[2021-07-24 14:00] VITALS: BP 138/47; PULSE 77; RESP 20; TEMP 36.5; O2SAT 99
--- NOTE | 2021-07-24 14:41 | PM.DS ---
DS: Admitting Diagnosis Discharge Date 07/24/2021 Admitting Diagnosis Fall, right knee pain DS: Summary Time Spent with Patient Time attestation: Total time spent providing and/or coordinating discharge services: Exam Narrative: General: Well-nourished, well-appearing 76 year-old male, sitting up in bed, comfortable, NARD Neuro: awake, alert and oriented to self, speech clear, follows simple commands, no focal neuro deficits noted, pleasantly confused HEENMT: normocephalic, atraumatic, EOMI, sclerae anicteric, moist oral mucosa Respiratory: clear to auscultation bilaterally, nonlabored breathing Cardio: regular rate, regular rhythm with S1-S2 Abdomen: nondistended, normoactive bowel sounds, soft, nontender to palpation Extremities: Right knee in brace. able to wiggle toes bilaterally Psych: Pleasant and cooperative, judgment and insight intact DS: Data Data Completed and Pending Labs on day of discharge: Labs from last 24 hours 07/24/21 06:12 Vitamin D 25-Hydroxy 38.1 Discharge Plan Discharge Attending physician on discharge: Kathy Bee Consulting providers: Red Contreras ; Jonatan Salgado Discharging Clinician: Ava Ward Activity: follow weight bearing status and other - see discharge instructions Diet: regular Discharge Instructions: Hospitalist discharge instructions: You have been hospitalized for a tibia fracture. You have been seen by an orthopedic surgeon. You should not bear any weight on your right leg. Continue to wear the brace. If you have worsened pain or any issues with your knee or hip, you should contact your orthopedic surgeon (contact information provided below). Use caution at home to avoid falls. Rise slowly from a seated or lying position and take a pause before getting up. Always use your walker or cane, even when going only short distances. You will begin taking Lovenox injections for 5 weeks. Please be aware that this medication puts you at risk for bleeding. Is important to monitor for any signs or symptoms of bleeding which include blood in your stools, dark or tarry stools, blood in your urine, nosebleeds, bleeding from your gums, coughing up blood, vomiting blood, or large nonhealing bruises. Call your doctor or seek medical care if you experience any of the above. Call 911 if you have a fall, injury, or accident which puts you at risk for bleeding. I recommend that you quit smoking. Smoking negatively effects your health and impairs the healing process. You have been provided with resources for quitting. Talk with your doctor if you need additional help quitting smoking. Call your doctor or proceed to the emergency department if you have any worrisome signs or symptoms including nausea, vomiting, fever, chills, dizziness, lightheadedness. Call 911 if you have any life-threatening symptoms. Medication information: Take Tylenol every 6 hours as needed for pain. You can take oxycodone for breakthrough pain. Only take this medication for severe pain and try to decrease use of this medication over the next 1-[address] while taking this medication. Call 911 if you have shallow breathing or loss of consciousness. Lovenox injections for 5 weeks. Continue other medications as prescribed. No additional changes have been made. Follow-up information: You should schedule an appointment with your primary care provider in 1-2 weeks to discuss your hospital stay. Call their office to schedule this appointment. Patient Instructions: Antibiotic Form, Enoxaparin (By injection), How to Stop Smoking (GEN), Fall Prevention (DC) Stand Alone Forms: General Discharge Information Follow-up/Referrals: Cristo Charles MD [Primary Care Provider] - Call for Appointment Jonatan Salgado MD [Physician] - Call for Appointment Discharge Medications: New oxycodone 5 mg tablet 2.5 mg PO Q4H PRN (Reason: pain) Qty: 24 RF: 0 enoxaparin [Lo
[2021-07-24 15:48] LABS: EDCOVIDSCREEN Negative (Negative)
--- NOTE | 2021-07-24 17:55 | P.PNIM_ITS ---
Progress Note: A&P Assessment and Plan (1) Fall: Code(s): W19.XXXA - Unspecified fall, initial encounter Status: Acute Assessment and Plan: Fall while walking up the stairs * Patient has history of gait instability * Appreciate PT/OT eval * Fall precautions implemented Patient also fell out of bed today. Please see subjective. Will repeat right hip and knee x-ray to ensure no injury and he will be re-evaluated by orthopedic surgeon tomorrow (2) Injury of knee, right: Code(s): S89.91XA - Unspecified injury of right lower leg, initial encounter Status: Acute Assessment and Plan: Patient fell on to right knee and reported right knee pain * Radiographs without findings of osseous abnormalities * Discussed case with orthopedic surgeon, Dr. Salgado on 07/22 who recommended follow-up CT. * CT of the knee showed fracture of the proximal tibia including a nondisplaced lateral tibial plateau fracture and avulsion fracture of the posterior cruciate ligament attachment site * Small knee joint effusion consistent with hemarthrosis due to fracture * Brace was applied and is locked in extension * Patient to remain strictly nonweightbearing * He will continue therapy at [facility] * Lovenox for DVT prophylaxis for 5 weeks * Analgesics available as needed for pain * Supportive care. Elevate extremity. Ice. (3) Tibial plateau fracture, right: Code(s): S82.141A - Displaced bicondylar fracture of right tibia, initial encounter for closed fracture Status: Acute Assessment and Plan: Please see above (4) History of right hip replacement: Code(s): Z96.641 - Presence of right artificial hip joint Status: Inactive Assessment and Plan: History of right hip replacement in 2008 * Patient complained of right hip pain with weight-bearing * Stinchfield test elicits right hip pain * Hip CT showed stable loosening, no acute changes (5) Gait instability: Code(s): R26.81 - Unsteadiness on feet Status: Acute Assessment and Plan: Recently completed physical therapy for gait instability and May. * Fall precautions as above * Continue PT/OT (6) Agitation due to dementia: Code(s): F03.91 - Unspecified dementia with behavioral disturbance Status: Acute Assessment and Plan: Resolved. Patient noted to be agitated on admission * Patient is calm and cooperative during my exam, he is in good spirits * Continue with frequent reorientation * He has apparently been attempting to get out of bed today, and unfortunately 1 of these attempts resulted in a fall. (7) Alzheimer's disease: Code(s): G30.9 - Alzheimer's disease, unspecified; F02.80 - Dementia in other diseases classified elsewhere without behavioral disturbance Status: Inactive Assessment and Plan: Patient is A&O to self only. reports he is consistent with his baseline * He is established with a memory specialist at [facility]. Recently had a six-month follow-up during which progression of disease was noted. * Continue donepezil and memantine (8) Prediabetes: Code(s): R73.03 - Prediabetes Status: Acute Assessment and Plan: Fasting blood sugars noted to be elevated, therefore A1c checked and was elevated at 6.1 * He will need dietary and lifestyle modifications implemented and follow up with PCP for further blood sugar monitoring Subjective Date/time seen: 07/24/21 17:55 Interval
--- NOTE | 2021-07-24 17:55 | PM.IMPN ---
Progress Note: A&P Assessment and Plan (1) Fall: Code(s): W19.XXXA - Unspecified fall, initial encounter Status: Acute Assessment and Plan: Fall while walking up the stairs Patient has history of gait instability Appreciate PT/OT eval Fall precautions implemented Patient also fell out of bed today. Please see subjective. Will repeat right hip and knee x-ray to ensure no injury and he will be re-evaluated by orthopedic surgeon tomorrow (2) Injury of knee, right: Code(s): S89.91XA - Unspecified injury of right lower leg, initial encounter Status: Acute Assessment and Plan: Patient fell on to right knee and reported right knee pain Radiographs without findings of osseous abnormalities Discussed case with orthopedic surgeon, Dr. Salgado on 07/22 who recommended follow-up CT. CT of the knee showed fracture of the proximal tibia including a nondisplaced lateral tibial plateau fracture and avulsion fracture of the posterior cruciate ligament attachment site Small knee joint effusion consistent with hemarthrosis due to fracture Brace was applied and is locked in extension Patient to remain strictly nonweightbearing He will continue therapy at [facility] for DVT prophylaxis for 5 weeks Analgesics available as needed for pain Supportive care. Elevate extremity. Ice. (3) Tibial plateau fracture, right: Code(s): S82.141A - Displaced bicondylar fracture of right tibia, initial encounter for closed fracture Status: Acute Assessment and Plan: Please see above (4) History of right hip replacement: Code(s): Z96.641 - Presence of right artificial hip joint Status: Inactive Assessment and Plan: History of right hip replacement in 2008 Patient complained of right hip pain with weight-bearing Stincfield test elicits right hip pain Hip CT showed stable loosening, no acute changes (5) Gait instability: Code(s): R26.81 - Unsteadiness on feet Status: Acute Assessment and Plan: Recently completed physical therapy for gait instability and May. Fall precautions as above Continue PT/OT (6) Agitation due to dementia: Code(s): F03.91 - Unspecified dementia with behavioral disturbance Status: Acute Assessment and Plan: Resolved. Patient noted to be agitated on admission Patient is calm and cooperative during my exam, he is in good spirits Continue with frequent reorientation He has apparently been attempting to get out of bed today, and unfortunately 1 of these attempts resulted in a fall. (7) Alzheimer's disease: Code(s): G30.9 - Alzheimer's disease, unspecified; F02.80 - Dementia in other diseases classified elsewhere without behavioral disturbance Status: Inactive Assessment and Plan: Patient is A&O to self only. reports he is consistent with his baseline He is established with a memory specialist at [facility]. Recently had a six-month follow-up during which progression of disease was noted. Continue donepezil and memantine (8) Prediabetes: Code(s): R73.03 - Prediabetes Status: Acute Assessment and Plan: Fasting blood sugars noted to be elevated, therefore A1c checked and was elevated at 6.1 He will need dietary and lifestyle modifications implemented and follow up with PCP for further blood sugar monitoring Subjective Date/time seen: 07/24/21 17:55 Interval history: Date of service: 07/24/2021 Talat Zaragoza is a 76-year-old male with a history of Alzheimer's dementia, hypertension, CAD, CVA, COPD, depression, anxiety who is seen in follow-up for right knee and hip pain after a fall found to have a right tibial plateau fracture. He is a poor historian due to his dementia. He was scheduled to discharge to [facility] today. Unfortunately while waiting for the ambulance, he got out of bed an
[2021-07-24 18:33] VITALS: BP 124/86; PULSE 85; RESP 20; TEMP 37.1; O2SAT 99
[2021-07-24] MEDS: OLANZapine 10 MG INJ VIAL 5 MG IM (21:32)
[2021-07-24 22:00] VITALS: BP 129/92; PULSE 73; RESP 18; TEMP 36.6; O2SAT 93
--- NOTE | 2021-07-24 23:20 | PC.NURSE ---
Called patients Rafia Zaragoza due to patient being restless, climbing out of bed, and being noncompliant. Patients spouse agreed to come in and sit with patient at bedside.
[2021-07-25 05:29] VITALS: BP 118/71; PULSE 65; RESP 18; TEMP 36.1; O2SAT 95
--- NOTE | 2021-07-25 08:30 | PC.NURSE ---
This nurse noted upon assessment patient found without knee immobilizer on. Per shift nurse manager, patient dismantled knee immobilizer and refused to leave on. Hospitalist made aware knee immobilizer is not presently on patient and what was reported from shift nurse manager. Per hospitalist, she will follow up on Orthopedic MD to discuss knee immobilizer. Patient highly agitated and restless and noted to be kicking and hitting staff members. Hospitalist aware. New orders noted.
[2021-07-25] MEDS: LORazepam INJ (*CRX) 2 MG/ML VIAL 1 MG IM (08:53)
[2021-07-25] MEDS: ENOXAPARIN 40 MG/0.4 ML SYRINGE SUB-Q (10:00)
--- NOTE | 2021-07-25 10:00 | PM.IMPN ---
Progress Note: A&P Assessment and Plan (1) Fall: Code(s): W19.XXXA - Unspecified fall, initial encounter Status: Acute Assessment and Plan: Fall while walking up the stairs at home Patient has history of gait instability Appreciate PT/OT eval Fall precautions implemented On 07/24/2021 patient did unfortunately fall out of the bed. He is not able to understand the importance of maintaining strict nonweightbearing status due to his dementia, therefore has been making attempts to get out of bed. He did not hit his head when he fell. No injuries. X-ray of the knee and hip repeated with out any changes. Re-evaluated by orthopedic surgery and no injury secondary to fall noted. (2) Injury of knee, right: Code(s): S89.91XA - Unspecified injury of right lower leg, initial encounter Status: Acute Assessment and Plan: Patient fell on to right knee and reported right knee pain Radiographs without findings of osseous abnormalities Discussed case with orthopedic surgeon, Dr. Salgado on 07/22 who recommended follow-up CT. CT of the knee showed fracture of the proximal tibia including a nondisplaced lateral tibial plateau fracture and avulsion fracture of the posterior cruciate ligament attachment site Small knee joint effusion consistent with hemarthrosis due to fracture Brace was applied and locked in extension Patient to remain strictly nonweightbearing He will continue therapy at [facility]; pending re-evaluation Lovenox for DVT prophylaxis for 5 weeks Analgesics available as needed for pain Supportive care. Elevate extremity. Ice. (3) Tibial plateau fracture, right: Code(s): S82.141A - Displaced bicondylar fracture of right tibia, initial encounter for closed fracture Status: Acute Assessment and Plan: Please see above (4) History of right hip replacement: Code(s): Z96.641 - Presence of right artificial hip joint Status: Inactive Assessment and Plan: History of right hip replacement in 2008 Patient complained of right hip pain with weight-bearing Stinchfield test elicits right hip pain Hip CT showed stable loosening, no acute changes (5) Gait instability: Code(s): R26.81 - Unsteadiness on feet Status: Acute Assessment and Plan: Recently completed physical therapy for gait instability and May. Fall precautions as above Continue PT/OT (6) Agitation due to dementia: Code(s): F03.91 - Unspecified dementia with behavioral disturbance Status: Acute Assessment and Plan: Patient restless, attempting to get out of bed frequently Continue with frequent reorientation 25 mg seroquel qHS haloperidol 25 mg BID prn Discussed with supervising physician and orthopedic surgery (7) Alzheimer's disease: Code(s): G30.9 - Alzheimer's disease, unspecified; F02.80 - Dementia in other diseases classified elsewhere without behavioral disturbance Status: Inactive Assessment and Plan: Patient is A&O to self only. reports he is consistent with his baseline He is established with a memory specialist at [facility]. Recently had a six-month follow-up during which progression of disease was noted. Continue donepezil and memantine (8) Prediabetes: Code(s): R73.03 - Prediabetes Status: Acute Assessment and Plan: Fasting blood sugars noted to be elevated, therefore A1c checked and was elevated at 6.1 He will need dietary and lifestyle modifications implemented and follow up with PCP for further blood sugar monitoring Subjective Date/time seen: 07/25/21 08:47 Interval history: Date of service: 07/25/2021 Talat Zaragoza is a 76-year-old male with a history of Alzheimer's dementia, hypertension, CAD, CVA, COPD, depression, anxiety who is seen in follow-up for right knee and hip pain after a fall found to have a right tibial plateau
--- NOTE | 2021-07-25 10:00 | P.PNIM_ITS ---
Progress Note: A&P Assessment and Plan (1) Fall: Code(s): W19.XXXA - Unspecified fall, initial encounter Status: Acute Assessment and Plan: Fall while walking up the stairs at home * Patient has history of gait instability * Appreciate PT/OT eval * Fall precautions implemented * On 07/24/2021 patient did unfortunately fall out of the bed. He is not able to understand the importance of maintaining strict nonweightbearing status due to his dementia, therefore has been making attempts to get out of bed. He did not hit his head when he fell. No injuries. X-ray of the knee and hip repeated with out any changes. Re-evaluated by orthopedic surgery and no injury secondary to fall noted. (2) Injury of knee, right: Code(s): S89.91XA - Unspecified injury of right lower leg, initial encounter Status: Acute Assessment and Plan: Patient fell on to right knee and reported right knee pain * Radiographs without findings of osseous abnormalities * Discussed case with orthopedic surgeon, Dr. Salgado on 07/22 who recommended follow-up CT. * CT of the knee showed fracture of the proximal tibia including a nondisplaced lateral tibial plateau fracture and avulsion fracture of the posterior cruciate ligament attachment site * Small knee joint effusion consistent with hemarthrosis due to fracture * Brace was applied and locked in extension * Patient to remain strictly nonweightbearing * He will continue therapy at [facility] pending re-evaluation * Lovenox for DVT prophylaxis for 5 weeks * Analgesics available as needed for pain * Supportive care. Elevate extremity. Ice. (3) Tibial plateau fracture, right: Code(s): S82.141A - Displaced bicondylar fracture of right tibia, initial encounter for closed fracture Status: Acute Assessment and Plan: Please see above (4) History of right hip replacement: Code(s): Z96.641 - Presence of right artificial hip joint Status: Inactive Assessment and Plan: History of right hip replacement in 2008 * Patient complained of right hip pain with weight-bearing * Stinchfield test elicits right hip pain * Hip CT showed stable loosening, no acute changes (5) Gait instability: Code(s): R26.81 - Unsteadiness on feet Status: Acute Assessment and Plan: Recently completed physical therapy for gait instability and Arcadio. * Fall precautions as above * Continue PT/OT (6) Agitation due to dementia: Code(s): F03.91 - Unspecified dementia with behavioral disturbance Status: Acute Assessment and Plan: Patient restless, attempting to get out of bed frequently * Continue with frequent reorientation * 25 mg seroquel qHS * haloperidol 25 mg BID prn * Discussed with supervising physician and orthopedic surgery (7) Alzheimer's disease: Code(s): G30.9 - Alzheimer's disease, unspecified; F02.80 - Dementia in other diseases classified elsewhere without behavioral disturbance Status: Inactive Assessment and Plan: Patient is A&O to self only. reports he is consistent with his baseline * He is established with a memory specialist at [facility]. Recently had a six-month follow-up during which progression of disease was noted. * Continue donepezil and memantine (8) Prediabetes: Code(s): R73.03 - Prediabetes Status: Acute Assessment and Plan: Fasting blood sugars noted to be elevated, therefore A1c checked and was elevated at 6.1 * He will
[2021-07-25] MEDS: SERTRALINE HCL 50 MG TABLET 150 MG PO (10:02)
[2021-07-25] MEDS: PRAVASTATIN SODIUM 20 MG TABLET 40 MG PO (10:02)
[2021-07-25 10:03] VITALS: PULSE 76
[2021-07-25] MEDS: ENALAPRIL MALEATE 2.5 MG TABLET PO (10:03)
[2021-07-25] MEDS: FAMOTIDINE 20 MG TABLET PO ×2 (10:03→21:11)
[2021-07-25] MEDS: ACETAMINOPHEN 500 MG TABLET 1000 MG PO ×2 (10:03→21:11)
[2021-07-25] MEDS: METOPROLOL SUCCINATE EXT REL 25 MG TABCR PO (10:03)
[2021-07-25] MEDS: DONEPEZIL HCL 5 MG TABLET PO (10:04)
[2021-07-25] MEDS: MEMANTINE 10 MG TABLET PO ×2 (10:04→18:44)
[2021-07-25 14:00] VITALS: BP 110/64; PULSE 80; RESP 18; TEMP 37.1; O2SAT 96
[2021-07-25 14:53] VITALS: O2SAT 95
--- NOTE | 2021-07-25 15:10 | PM.PNORT ---
Progress Note: A&P Additional Plan Patient fell yesterday evening and a period of confusion and agitation. His alarm went off by the time the nurse could be in the room he was on the floor. He denies any injury. X-rays of his right hip and right knee were obtained again and reviewed and showed no new abnormalities. The minimally displaced lateral tibial plateau fracture is again visualized in the right knee. The hip replacement again looks intact with mild lucency around the proximal part of the stem without signs of component loosening or fracture. In the process he completely on did his knee brace. I rehab assembled the knee brace components from scratch in fit him personally. I spoke with the hospitalist and it is planned to try Seroquel at night and p.r.n. Haldol to hopefully prevent agitation on future. He is ready to transfer to the rehab unit from my standpoint. I would like to follow up with him in about 2 weeks in the office. I had a long discussion with patient's was at the bedside. Subjective Subjective Date/Time Seen: 07/25/21 15:10 Objective Data Vital Signs Vital Signs: Vital Signs - 24 hr 07/24/21 18:33 07/24/21 22:00 07/25/21 05:29 Temperature 37.1 C 36.6 C 36.1 C L Pulse Rate 85 73 65 Respiratory Rate 20 18 18 Blood Pressure 124/86 129/92 H 118/71 Pulse Oximetry 99 93 95 07/25/21 10:03 07/25/21 14:53 Temperature Pulse Rate 76 Respiratory Rate Blood Pressure Pulse Oximetry 95 Intake/Output Intake/Output: Intake & Output 07/22/21 07/23/21 07/24/21 07/25/21 23:59 23:59 23:59 23:59 Intake Total 750 1140 1318 0 Output Total 450 400 Balance 750 690 918 0 Meds/Results Medications: Active Medications Generic Name Dose Route Start Last Admin Trade Name Sukumarq PRN Reason Stop Dose Admin Acetaminophen 1,000 mg 07/24/21 14:00 07/25/21 10:03 Acetaminophen 500 Mg Tablet PO 1,000 mg Q6H JOSH Administration Donepezil HCl 5 mg 07/22/21 09:00 07/25/21 10:04 Donepezil Hcl 5 Mg Tablet PO 5 mg DAILY JOSH Administration Enalapril Maleate 2.5 mg 07/22/21 09:00 07/25/21 10:03 Enalapril Maleate 2.5 Mg Tablet PO 2.5 mg DAILY JOSH Administration Enoxaparin Sodium 40 mg 07/24/21 09:00 07/25/21 10:00 Enoxaparin 40 Mg/0.4 Ml Syringe SUB-Q 40 mg DAILY JOSH Administration Famotidine 20 mg 07/22/21 09:00 07/25/21 10:03 Famotidine 20 Mg Tablet PO 20 mg Q12HR JOSH Administration Lorazepam 0.5 mg 07/25/21 08:32 Lorazepam (*Crx) 0.5 Mg Tablet PO Q6H PRN Anxiety, restlessness Memantine 10 mg 07/22/21 09:00 07/25/21 10:04 Memantine 10 Mg Tablet PO 10 mg BID JOSH Administration Metoprolol Succinate 25 mg 07/22/21 09:00 07/25/21 10:03 Metoprolol Succinate Ext Rel 25 Mg Tabcr PO 25 mg DAILY JOSH Administration Ondansetron HCl 4 mg 07/21/21 20:59 Ondansetron Inj 4 Mg/2 Ml Vial IV PUSH Q4H PRN Nausea Oxybutynin Chloride 5 mg 07/22/21 09:00 07/25/21 10:03 Oxybutynin Chloride Xl 5 Mg Tab.Er.24 PO 5 mg DAILY JOSH Administration Oxycodone HCl 2.5 mg 07/23/21 17:48 Oxycodone Hcl (*Crx) 2.5 Mg Tab Ir PO Q4H PRN Pain Rated 7-10 Pravastatin Sodium 40 mg 07/22/21 09:00 07/25/21 10:02 Pravastatin Sodium 20 Mg Tablet PO 40 mg DAILY JOSH Administration Sertraline HCl 150 mg 07/22/21 09:00 07/25/21 10:02 Sertraline Hcl 50 Mg Tablet PO 150 mg DAILY JOSH Administration Radiology Results: ITS Impressions Head CT 07/21/21 20:26 IMPRESSION: 1. No fracture or acute intracranial process. 2. Age-related changes including mild diffuse volume loss and mild to moderate scattered white matter hypoattenuation consistent with chronic small vessel ischemic disease. Chest X-Ray 07/21/21 20:57 IMPRESSION: 1. No significant change in scattered linear discoid atelectasis/scarring the right mid and bilateral lower lung zones Hip CT 07/23/21 10:26 [id number]
[2021-07-25 20:43] VITALS: PULSE 82; O2SAT 93
[2021-07-25] MEDS: LORazepam (*CRX) 0.5 MG TABLET PO (21:12)
[2021-07-25 22:00] VITALS: BP 118/66; PULSE 85; RESP 16; TEMP 36.6; O2SAT 97
[2021-07-26 06:00] VITALS: BP 138/70; PULSE 67; RESP 20; TEMP 36; O2SAT 99
[2021-07-26 08:00] VITALS: O2SAT 99
[2021-07-26] MEDS: LORazepam (*CRX) 0.5 MG TABLET PO (08:14)
[2021-07-26] MEDS: ACETAMINOPHEN 500 MG TABLET 1000 MG PO ×2 (08:14→13:02)
[2021-07-26 08:15] VITALS: PULSE 70
[2021-07-26] MEDS: PRAVASTATIN SODIUM 20 MG TABLET 40 MG PO (08:15)
[2021-07-26] MEDS: SERTRALINE HCL 50 MG TABLET 150 MG PO (08:15)
[2021-07-26] MEDS: FAMOTIDINE 20 MG TABLET PO (08:15)
[2021-07-26] MEDS: ENOXAPARIN 40 MG/0.4 ML SYRINGE SUB-Q (08:15)
[2021-07-26] MEDS: ENALAPRIL MALEATE 2.5 MG TABLET PO (08:15)
[2021-07-26] MEDS: METOPROLOL SUCCINATE EXT REL 25 MG TABCR PO (08:15)
[2021-07-26] MEDS: MEMANTINE 10 MG TABLET PO (08:15)
[2021-07-26] MEDS: DONEPEZIL HCL 5 MG TABLET PO (08:16)
[2021-07-26 13:35] VITALS: BP 108/63; PULSE 76; RESP 16; TEMP 36.3; O2SAT 95
--- NOTE | 2021-07-26 15:30 | PM.DS ---
DS: Admitting Diagnosis Discharge Date 07/26/2021 Admitting Diagnosis Fall, right knee pain DS: Discharge Diagnosis Discharge Diagnosis (1) Fall: Code(s): W19.XXXA - Unspecified fall, initial encounter Status: Acute Assessment and Plan: Fall while walking up the stairs at home Patient has history of gait instability Did not hit his head or lose consciousness. Head CT no acute findings. Appreciate PT/OT eval Fall precautions implemented On 07/24/2021 patient did unfortunately fall out of the bed. He is not able to understand the importance of maintaining strict nonweightbearing status due to his dementia, therefore was making attempts to get out of bed. He did not hit his head when he fell. No injuries. X-ray of the knee and hip repeated without any changes. Re-evaluated by orthopedic surgery and no injury secondary to subsequent fall noted. (2) Injury of knee, right: Code(s): S89.91XA - Unspecified injury of right lower leg, initial encounter Status: Acute Assessment and Plan: Patient fell on to right knee on 07/21 and reported right knee pain Radiographs without findings of osseous abnormalities Discussed case with orthopedic surgeon, Dr. Salgado on 07/22 who recommended follow-up CT. CT of the knee showed fracture of the proximal tibia including a nondisplaced lateral tibial plateau fracture and avulsion fracture of the posterior cruciate ligament attachment site Small knee joint effusion consistent with hemarthrosis due to fracture Brace was applied and locked in extension Patient to remain strictly nonweightbearing He will continue therapy at SNF He was initially scheduled to go to [facility], however on re-evaluation was not found to be appropriate for acute rehab Lovenox for DVT prophylaxis for 5 weeks. Repeat CBC in 1 week Analgesics available as needed for pain Supportive care. Elevate extremity. Ice. Follow-up with orthopedic surgery in 2 weeks (3) Tibial plateau fracture, right: Code(s): S82.141A - Displaced bicondylar fracture of right tibia, initial encounter for closed fracture Status: Acute Assessment and Plan: Please see above (4) History of right hip replacement: Code(s): Z96.641 - Presence of right artificial hip joint Status: Inactive Assessment and Plan: History of right hip replacement in 2008 Patient complained of right hip pain with weight-bearing Stinchfield test elicits right hip pain Hip CT showed stable loosening, no acute changes (5) Gait instability: Code(s): R26.81 - Unsteadiness on feet Status: Acute Assessment and Plan: Recently completed physical therapy for gait instability and May. Fall precautions as above Continue PT/OT at SNF (6) Agitation due to dementia: Code(s): F03.91 - Unspecified dementia with behavioral disturbance Status: Acute Assessment and Plan: Patient had occasional episodes of agitation and restlessness secondary to his dementia Patient calm, cooperative, pleasant on day of discharge with no agitation 25 mg seroquel qHS haloperidol 25 mg BID prn Discussed with supervising physician and orthopedic surgery Continue with frequently orientation. His will be visiting regularly at SNF which should help with him getting adjusted to his new surroundings (7) Alzheimer's disease: Code(s): G30.9 - Alzheimer's disease, unspecified; F02.80 - Dementia in other diseases classified elsewhere without behavioral disturbance Status: Inactive Assessment and Plan: Patient is A&O to self only. reports he is consistent with his baseline He is established with a memory specialist at [facility]. Recently had a six-month follow-up during which progression of disease was noted. Continue donepezil and memantine (8) Prediabetes: Code(s): R73.03 - Prediabetes Status: Acute
--- NOTE | 2021-07-26 15:30 | P.DS_ITS ---
DS: Admitting Diagnosis Discharge Date 07/26/2021 Admitting Diagnosis Fall, right knee pain DS: Discharge Diagnosis Discharge Diagnosis (1) Fall: Code(s): W19.XXXA - Unspecified fall, initial encounter Status: Acute Assessment and Plan: Fall while walking up the stairs at home * Patient has history of gait instability * Did not hit his head or lose consciousness. Head CT no acute findings. * Appreciate PT/OT eval * Fall precautions implemented * On 07/24/2021 patient did unfortunately fall out of the bed. He is not able to understand the importance of maintaining strict nonweightbearing status due to his dementia, therefore was making attempts to get out of bed. He did not hit his head when he fell. No injuries. X-ray of the knee and hip repeated without any changes. Re-evaluated by orthopedic surgery and no injury secondary to subsequent fall noted. (2) Injury of knee, right: Code(s): S89.91XA - Unspecified injury of right lower leg, initial encounter Status: Acute Assessment and Plan: Patient fell on to right knee on 07/21 and reported right knee pain * Radiographs without findings of osseous abnormalities * Discussed case with orthopedic surgeon, Dr. Salgado on 07/22 who recommended follow-up CT. * CT of the knee showed fracture of the proximal tibia including a nondisplaced lateral tibial plateau fracture and avulsion fracture of the posterior cruciate ligament attachment site * Small knee joint effusion consistent with hemarthrosis due to fracture * Brace was applied and locked in extension * Patient to remain strictly nonweightbearing * He will continue therapy at SNF * He was initially scheduled to go to [facility], however on re-evaluation was not found to be appropriate for acute rehab * Lovenox for DVT prophylaxis for 5 weeks. Repeat CBC in 1 week * Analgesics available as needed for pain * Supportive care. Elevate extremity. Ice. * Follow-up with orthopedic surgery in 2 weeks (3) Tibial plateau fracture, right: Code(s): S82.141A - Displaced bicondylar fracture of right tibia, initial encounter for closed fracture Status: Acute Assessment and Plan: Please see above (4) History of right hip replacement: Code(s): Z96.641 - Presence of right artificial hip joint Status: Inactive Assessment and Plan: History of right hip replacement in 2008 * Patient complained of right hip pain with weight-bearing * Stinchfield test elicits right hip pain * Hip CT showed stable loosening, no acute changes (5) Gait instability: Code(s): R26.81 - Unsteadiness on feet Status: Acute Assessment and Plan: Recently completed physical therapy for gait instability and Arcadio. * Fall precautions as above * Continue PT/OT at SNF (6) Agitation due to dementia: Code(s): F03.91 - Unspecified dementia with behavioral disturbance Status: Acute Assessment and Plan: Patient had occasional episodes of agitation and restlessness secondary to his dementia * Patient calm, cooperative, pleasant on day of discharge with no agitation * 25 mg seroquel qHS * haloperidol 25 mg BID prn * Discussed with supervising physician and orthopedic surgery * Continue with frequently orientation. His will be visiting regularly at SNF which should help with him getting adjusted to his new surroundings (7) Alzheimer's disease: Code(s): G30.9 - Alzheimer's disease, unspecified; F02.80 - Dementia in other diseases classified elsewhere
== END 2021-07-26 15:22 | DRG 563 ==
LOC: ANHED 20:58 → ANH3MEDSUR 21:20
PROVIDERS: Emergency Medicine Emergency Medical Services; Orthopaedic Surgery; Physician Assistant; Admitting Provider Internal Medicine; Emergency Provider Emergency Medicine; PCP Family Medicine; Visit Provider Family Medicine
DX: S82.141A Displaced bicondylar fracture of right tibia, initial encounter for closed fracture (principal); F02.81 Dementia in other diseases classified elsewhere, unspecified severity, with behavioral disturbance; G30.9 Alzheimer's disease, unspecified; W10.8XXA Fall (on) (from) other stairs and steps, initial encounter; Z20.822 Contact with and (suspected) exposure to COVID-19; R26.81 Unsteadiness on feet; R73.03 Prediabetes; J44.9 Chronic obstructive pulmonary disease, unspecified; I25.10 Atherosclerotic heart disease of native coronary artery without angina pectoris; F41.8 Other specified anxiety disorders; I10 Essential (primary) hypertension; G62.9 Polyneuropathy, unspecified; F17.210 Nicotine dependence, cigarettes, uncomplicated; Z79.82 Long term (current) use of aspirin; Z79.899 Other long term (current) drug therapy; Z86.73 Personal history of transient ischemic attack (TIA), and cerebral infarction without residual deficits; Z95.5 Presence of coronary angioplasty implant and graft
CPT/HCPCS: 36415; 70450; 71045; 73502; 73560; 73562; 73700; 80048; 81001; 82306; 82948; 83036; 85025; 85027; 87426; 96372; 96374; 96375; 97110; 97161; 97165; 97530; 97535; 99285; A9270; C9803; G0378; J1650; J1885; J2060; J7120; U0003; U0005

== ENCOUNTER 2022-08-02 14:06 | Emergency (ER) | payer MEDICARE, OTHER, SELFPAY ==
[2022-08-02] VITALS (7 sets, daily range): BP systolic 98–147; BP diastolic 80–93; PULSE 77–87; RESP 17–23; TEMP 36.7; O2SAT 96–98
--- NOTE | ~2022-08-02 | CT_ITS ---
EXAMINATION: CT lumbar spine wo con DATE: 08/02/2022 15:07 INDICATION: back pain . TECHNIQUE: Computed tomography (CT) of the lumbar spine was performed without intravenous contrast. A utomated exposure control and iterative reconstruction technique were employed. The dose-length produ ct was 1125.61 mGy-cm. COMPARISON: CT abdomen and pelvis 02/25/2021. FINDINGS: Atherosclerotic calcifications. Osteopenia. 5 nonrib-bearing lumbar-type vertebral bodies. Pedicles intact. Normal vertebral body alignment. Vertebral body heights preserved. Multilevel disc s pace narrowing and marginal osteophytosis. Vacuum phenomenon at T12-L1 through L2-3. Multilevel sever e facet hypertrophy and sclerosis. Partial fusion of the right SI joint. No severe neural foraminal n arrowing. Severe central canal stenosis at L3-4 from a combination of a diffuse disc bulge and facet/ ligamentum flavum hypertrophy. 4 mm left subarticular protrusion at L2-3. Multilevel diffuse disc bul ges. IMPRESSION: No acute fracture or traumatic malalignment in the lumbar spine. Multilevel degenerative disc disease , severe at T12-L1 through L2-3. 4 mm left subarticular protrusion at L2-3. Severe central canal sten osis at L3-4. Multilevel severe facet arthropathy. Reviewed, dictated and finalized at location K. STOCK ASSOCIATE IMPRESSION: No acute fracture or traumatic malalignment in the lumbar spine. Multilevel deg enerative disc disease, severe at T12-L1 through L2-3. 4 mm left subarticular p rotrusion at L2-3. Severe central canal stenosis at L3-4. Multilevel severe fac et arthropathy.
--- NOTE | ~2022-08-02 | XR_ITS ---
EXAMINATION: XR chest 1V portable Exam Date/Time: 08/02/2022 14:40 COAL UNLOADER HISTORY: FALL. LOC Comparison: 07/21/2021. RESULT: Lines, tubes, and devices: None. Lungs and pleura: Senescent change. Right mid and bilateral lower lung linear opacities likely repre senting atelectasis/scar. Cardiomediastinal silhouette: Stable. Other: No acute osseous or upper abdominal finding. IMPRESSION: No acute cardiopulmonary process. Reviewed, dictated and finalized at location K. UNLOADER
--- NOTE | ~2022-08-02 | CT_ITS ---
EXAMINATION: CT brain wo con DATE: 08/02/2022 15:07 INDICATION: Fall. Head injury. TECHNIQUE: Computed tomography (CT) of the head was performed without intravenous contrast. The mA wa s adjusted according to patient size. Iterative reconstruction technique was employed. Exam dose: 68 1.00 mGy-cm total exam DLP. COMPARISON: July 21, 2021 CT brain FINDINGS: High right posterior parietal cephalohematoma is present. No skull fracture is detected. No coup or contrecoup intracranial injury is identified. Dominant left vertebral artery calcification, basilar artery and prominent bilateral carotid siphon i nternal carotid artery calcifications. Nonspecific diminished attenuation cerebral white matter, likely due to chronic small vessel ischemic changes. Prominent central and cortical cerebral and cerebellar atrophy. No intracranial mass lesion or hemorrhage, midline shift or mass effect is detected. No subdural or epidural hematoma is detected. Severe soft tissue opacification of the right sphenoid sinus and some medial left ethmoid air cell op acification. The paranasal sinuses and mastoid air cells otherwise are normally developed and aerated . IMPRESSION: High posterior right parietal cephalohematoma without underlying skull fracture or acute coup or contrecoup intracranial injury Cerebral atherosclerosis and chronic small vessel ischemic changes of the cerebral white matter Cerebral and cerebellar atrophy Reviewed, dictated and finalized at Location A. Reviewed, dictated and finalized at location A. ING AGENCY COUNTER CLERK IMPRESSION: High posterior right parietal cephalohematoma without underlying s kull fracture or acute coup or contrecoup intracranial injury Cerebral atherosclerosis and chronic small vessel ischemic changes of the cereb ral white matter Cerebral and cerebellar atrophy
--- NOTE | ~2022-08-02 | CT_ITS ---
EXAMINATION: CT cervical spine wo con DATE: 08/02/2022 15:07 INDICATION: fall, neck pain TECHNIQUE: Computed tomography (CT) of the cervical spine was performed without intravenous contrast. Automated exposure control and iterative reconstruction technique were employed. The dose-length pro duct was 396.27 mGy-cm. COMPARISON: None. FINDINGS: Vertebral Body Alignment: Intact. . Craniocervical and atlantoaxial alignment: Moderate degenerative change. Alignment intact. Reversed l ordosis of the lower cervical spine centered at C6. Osseous structures/fracture: No evidence of a lytic or blastic process in the visualized spine. No e vidence of acute fracture. Vertebral body fusion of C5-C7. Cervical soft tissues: The paraspinal soft tissues planes are maintained. Degenerative changes: Multilevel degenerative disc disease. Multilevel severe facet arthropathy. Carly re right neural foraminal narrowing at C3-4. Severe left neural foraminal narrowing at C4-5. No sever e central canal stenosis. IMPRESSION: No acute fracture or traumatic malalignment in the cervical spine. Reviewed, dictated and finalized at location K. FEN HOUSE SUPERVISOR
--- NOTE | 2022-08-02 14:20 | ECG_ITS ---
Measurements Intervals [place] Rate: 76 P: 35 PA: 202 QRS: 9 QRSD: 94 T: 8 QT: 390 QTc: 440 Interpretive Statements SINUS RHYTHM LOW QRS VOLTAGE IN PRECORDIAL LEADS NONSPECIFIC T-WAVE ABNORMALITY BORDERLINE ECG COMPARED TO ECG 11/13/2020 16:18:41 NO SIGNIFICANT CHANGE Electronically Signed On 08-03-2022 14:00:31 MASSOTHERAPIST by Toy Dodson M.D.
--- NOTE | 2022-08-02 14:24 | ED.FALL ---
HPI - Fall General Chief Complaint: Fall Stated Complaint: unwittnessed fall down 2 steps Time Seen by Provider: 08/02/22 14:15 Source: patient, RN notes reviewed and old records reviewed Mode of arrival: EMS Limitations: dementia History of Present Illness HPI Narrative: This is a 77 year old male who presents for evaluation of a fall. Patient has history of dementia so he does not remember falling. His family heard him fall so they found on him on the ground on his back in the garage. He was found to have knot to back of his head, and he takes plavix. He complained to his family about head pain and back pain. Patient does not have any complaints. Patient is at his baseline per his family. Related Data Home Medications Medication Instructions Recorded Confirmed aspirin 81 mg tablet 81 mg PO DAILY 07/21/21 07/21/21 clopidogrel 75 mg tablet (Plavix) 75 mg PO DAILY 07/21/21 07/21/21 donepezil 5 mg tablet 5 mg PO DAILY 07/21/21 07/21/21 enalapril maleate 2.5 mg tablet 2.5 mg PO DAILY 07/21/21 07/21/21 memantine 10 mg tablet 10 mg PO BID 07/21/21 07/21/21 metoprolol succinate 25 mg 25 mg PO DAILY 07/21/21 07/21/21 tablet,extended release 24 hr oxybutynin chloride 5 mg 5 mg PO DAILY 07/21/21 07/21/21 tablet,extended release 24 hr pravastatin 40 mg tablet 40 mg PO DAILY 07/21/21 07/21/21 sertraline 100 mg tablet 150 mg PO DAILY 07/21/21 07/21/21 Allergies Allergy/AdvReac Type Severity Reaction Status Date / Time No Known Allergies Allergy Verified 07/21/21 17:44 Review of Systems Constitutional: Constitutional: Denies weakness Cardiovascular: Cardiovascular: Denies syncope, Denies rapid heart rate, Denies irregular heart rhythm, Denies leg edema and Denies dyspnea Respiratory: Respiratory: Denies chest congestion, Denies hemoptysis, Denies excessive phlegm production and Denies dyspnea Gastrointestinal: Gastrointestinal: Denies abdominal pain, Denies hematochezia, Denies diarrhea and Denies vomiting Genitourinary: Genitourinary: Denies hematuria, Denies dysuria, Denies penile discharge and Denies testicular pain Musculoskeletal: Musculoskeletal: Denies joint swelling, Denies loss of height and Denies muscle weakness Neurologic: Denies syncope, Denies focal weakness and Denies weakness PMFSH Past Medical History Medical History Alzheimer's disease COPD (chronic obstructive pulmonary disease) Coronary artery disease CVA (cerebral vascular accident) Depression with anxiety Hypertension Neuropathy Tobacco abuse Urinary incontinence Surgical History Surgical History H/O heart artery stent History of fusion of cervical spine History of right hip replacement 2008 Family History Family History (Updated 07/21/21 @ 22:35 by Vania Mercer RN) Father Chronic obstructive pulmonary disease Mother Acute myocardial infarction Social History Social History Social History: Mr. Zaragoza lives at home with his who assist him in his daily activities. His primary care provider is Dr. Cristo Charles. He designates his , Magdalena, as his surrogate decision maker and he would like to be a full code Smoking packs per day: 0.5 Smoking cigarettes per day: 10.0 Years smoked: 45 Smoking pack-years: 22.50 Smoking status: Current every day smoker Tobacco type: cigarettes Alcohol intake: former Substance use: never Gender identity (if verbalized by the patient): Male Spiritual care concerns: No Exam Const: General: no acute distress and alert Nutritional Appearance: well nourished Orientation/consciousness: patient oriented x3 Limitations: no limitations HENMT: Head: hematoma Throat: posterior oropharynx normal Eyes: Pupils: Equal, round and reactive pupils present EOM: EOMs intact bilaterally Chest: Chest palpation & in
[2022-08-02 14:45] LABS: Basophils Absolute Auto 0.1 K/mm3 (0.0-0.1); Basophils Percent Auto 0.5 % (0.2-1.2); Eosinophils Absolute Auto 0.3 K/mm3 (0-0.3); Eosinophils Percent Auto 2.3 % (0-4.4); Hematocrit 44.5 % (42.0-52.0); Immature Granulocyte Absolute 0.07 K/mm3 (0.00-0.031); Immature Granulocyte Percent A 0.6 % (0-0.5); Lymphocytes Absolute Auto 2.88 K/mm3 (0.9-3.2); Lymphocytes Percent Auto 26.1 % (18.3-44.2); Mean Corpuscular HGB Conc 33.7 g/dl (32-36); Mean Corpuscular Hemoglobin 30.9 pg (26-34); Mean Corpuscular Volume 91.8 fl (80-100); Mean Platelet Volume 9.5 fl (7.4-10.4); Monocytes Absolute Auto 0.7 K/mm3 (0.1-0.6); Monocytes Percent Auto 6.3 % (2.6-8.5); Neutrophils Absolute Auto 7.1 K/mm3 (1.3-6.7); Neutrophils Percent Auto 64.2 % (45.5-73.1); Platelet Count Result 241 k/mm3 (150-375); Red Blood Count 4.85 M/mm3 (4.6-6.20); Red Cell Distribution Width 13.4 % (11.5-14.5); White Blood Count 11.1 K/mm3 (4.5-10.0)
--- NOTE | 2022-08-02 14:49 | PC.NURSE ---
Pt taken to CT at this time
[2022-08-02 14:56] LABS: Alanine Aminotransferase 34 U/L (6-50); Albumin Level 4.4 g/dL (3.5-5.1); Alkaline Phosphatase 71 U/L (38-126); Anion Gap 5 mmol/L (8-16); Aspartate Amino Transferase 53 U/L (17-59); Bilirubin,Total 0.6 mg/dL (0.2-1.3); Blood Urea Nitrogen 16 mg/dL (9-20); Calcium 9.2 mg/dL (8.4-10.2); Carbon Dioxide 27 mmol/L (22-30); Chloride 103 mmol/L (98-107); Estimated CRCL calculation 56 ml/min; Estimated Glomerular Filt Rate > 60; Glucose 145 mg/dL (65-110); Partial Thromboplastin Time 24.2 SECONDS (22.3-36.8); Potassium 4.1 mmol/L (3.4-5.0); Prothrombin Time 12.8 Seconds (11.1-14.7); Sodium 135 mmol/L (137-145)
[2022-08-02 15:48] LABS: Appearance Urine Clear (Clear); Bacteria Urine None Seen /hpf; Bilirubin Urine Negative (Negative); Color Urine Yellow (Yellow); Glucose Urine UA Negative (Negative); Ketones Urine Negative (Negative); Leukocyte Esterase Ur Negative LEU/UL (Negative); Nitrate Urine Negative (Negative); Non Pathogenic Casts 0-2; Protein Urine Negative (Negative); Specific Grav Ur 1.019 (1.001-1.035); Squamous Epithelial Cell Urine None seen /hpf (Few); WBC Urine 0-5 /hpf
--- NOTE | 2022-08-02 16:01 | PC.NURSE ---
per Dr. Mayfield, C collar can be removed
[2022-08-02 16:04] LABS: Blood Urine Trace (Negative)
[2022-08-02 16:05] LABS: Add Urine Microscopic? YES
== END 2022-08-02 18:37 | disposition home or self-care (01) ==
PROVIDERS: Emergency Provider General Practice; PCP Family Medicine
DX: S09.90XA Unspecified injury of head, initial encounter (principal); S39.92XA Unspecified injury of lower back, initial encounter; G30.9 Alzheimer's disease, unspecified; F02.80 Dementia in other diseases classified elsewhere, unspecified severity, without behavioral disturbance, psychotic disturbance, mood disturbance, and anxiety; J44.9 Chronic obstructive pulmonary disease, unspecified; I25.10 Atherosclerotic heart disease of native coronary artery without angina pectoris; G62.9 Polyneuropathy, unspecified; F17.210 Nicotine dependence, cigarettes, uncomplicated; Z86.73 Personal history of transient ischemic attack (TIA), and cerebral infarction without residual deficits; Z95.5 Presence of coronary angioplasty implant and graft; Z96.641 Presence of right artificial hip joint; Z98.1 Arthrodesis status; Z79.82 Long term (current) use of aspirin; Z79.02 Long term (current) use of antithrombotics/antiplatelets; W19.XXXA Unspecified fall, initial encounter
CPT/HCPCS: 36415; 70450; 71045; 72125; 72131; 80053; 81001; 85025; 85610; 85730; 93005; 99284

== ENCOUNTER 2022-10-08 13:16 | Inpatient (IN) | payer MEDICARE, OTHER, SELFPAY ==
[2022-10-08] VITALS (9 sets, daily range): BP systolic 98–138; BP diastolic 72–94; PULSE 94–100; RESP 18–26; TEMP 36.4–36.9; O2SAT 92–100
--- NOTE | ~2022-10-08 | XR_ITS ---
EXAMINATION: XR chest 1V portable DATE: 10/11/2022 14:14 INDICATION: Cough. TECHNIQUE: A single frontal view of the chest was obtained. COMPARISON: Chest 2 views 10/08/22, chest CT 03/08/2020 FINDINGS: There are stable interstitial opacities in the mid and lower lung zones. No pleural effusio n or pneumothorax. The heart size is normal. IMPRESSION: 1. Stable chronic interstitial lung disease. Reviewed, dictated and finalized at location A.
--- NOTE | ~2022-10-08 | CT_ITS ---
EXAMINATION: CT brain wo con DATE: 10/08/2022 14:38 INDICATION: Unsteady gait and increasing weakness TECHNIQUE: Computed tomography (CT) of the head was performed without intravenous contrast. Sagittal and coronal reconstructions were performed. The mA was adjusted according to patient size. Iterative reconstruction technique was employed. The dose-length product was 1059.33 mGy-cm. COMPARISON: head CT dated 08/02/2022 FINDINGS: No acute intracranial hemorrhage, acute infarction or abnormal extra axial fluid collection. There is moderate scattered white matter hypoattenuation consistent with chronic small vessel ischemic diseas e. Symmetric prominence of the sulci and ventricles consistent with moderate age-appropriate diffuse cerebral volume loss. No mass/mass effect. Moderate mucosal thickening in the scattered dependently l ayering fluid throughout the paranasal sinuses suggestive of pansinusitis. The orbits and mastoid air cells are normal. IMPRESSION: 1. No acute intracranial process. 2. Age-related changes including moderate diffuse volume loss and moderate scattered white matter hyp oattenuation consistent with chronic small vessel ischemic disease. 3. The callosal thickening fluid throughout the paranasal sinuses. Correlate for acute sinusitis. Reviewed, dictated and finalized at location L. IMPRESSION: 1. No acute intracranial process. 2. Age-related changes including moderate diffuse volume loss and moderate scat tered white matter hypoattenuation consistent with chronic small vessel ischemi c disease. 3. The callosal thickening fluid throughout the paranasal sinuses. Correlate fo r acute sinusitis.
--- NOTE | ~2022-10-08 | CT_ITS ---
EXAMINATION: CT brain wo con DATE: 10/10/2022 10:31 INDICATION: Subdural hematoma. Altered mental status. TECHNIQUE: Computed tomography (CT) of the head was performed without intravenous contrast. The mA wa s adjusted according to patient size. Iterative reconstruction technique was employed. The dose-lengt h product was 1059.33 mGy-cm. COMPARISON: Head CT 10/08/2022, brain MRI 10/09/2022 FINDINGS: There is a small hyperdense subdural hematoma anterior to the left frontal lobe with maximu m thickness of 4 mm. There are scattered areas of low attenuation in the cerebral white matter. There is no acute ischemic infarct. The ventricles are normal in size. The orbits are normal. There is muc osal thickening and fluid in the paranasal sinuses. The mastoid air cells are normal. There is cerume n in the external auditory canals. IMPRESSION: 1. Stable small acute subdural hematoma anterior to left frontal lobe. 2. Stable extensive nonspecific cerebral white matter disease, which likely represents chronic small vessel ischemic disease. Reviewed, dictated and finalized at location A. IMPRESSION: 1. Stable small acute subdural hematoma anterior to left frontal lobe. 2. Stable extensive nonspecific cerebral white matter disease, which likely rep resents chronic small vessel ischemic disease.
--- NOTE | ~2022-10-08 | XR_ITS ---
MODIFIED ESOPHAGRAM HISTORY: Dysphagia. TECHNIQUE: Modified barium esophagram was performed on 10/23/2022. I administered fluoroscopy and perf ormed the exam with speech pathologist. Patient was seated for lateral fluoroscopic imaging for ronda stion of thin liquids, pudding, solids and quantified amounts, followed by thin liquids in uncontroll ed amounts. This was recorded on tape. A single fluoroscopic spot image was also recorded. The DAP fo r this procedure was 1.399 Gycm2. The amount of fluoroscopy time used during this procedure was 2.2 m inutes. FINDINGS: Oral stage: Adequate function. Pharyngeal stage: There is reduced laryngeal elevation and tongue base retraction. There is both vall ecular and piriform sinus residue. There is recurrent trace laryngeal penetration and silent aspirati on of small amounts of contrast following the swallow. Cervical/esophageal stage: Adequate function. IMPRESSION: Consistent trace laryngeal penetration with silent aspiration following the swallow. Ple ase correlate with speech pathologist findings and specific feeding recommendations. Reviewed, dictated and finalized at location A. IMPRESSION: Consistent trace laryngeal penetration with silent aspiration follo wing the swallow. Please correlate with speech pathologist findings and specif ic feeding recommendations.
--- NOTE | ~2022-10-08 | XR_ITS ---
Clinical Indication: Weakness AP and lateral views of the chest: Comparison: 08/02/2022 Findings: The lungs are clear, without evidence of focal consolidation or pleural effusion. Cardiome diastinal silhouette is within normal limits. Bones and soft tissues are unremarkable. Impression: Normal chest. Reviewed, dictated and finalized at location . Impression: Normal chest.
--- NOTE | ~2022-10-08 | MR_ITS ---
EXAMINATION: MR brain/brain stem wo con DATE: 10/09/2022 09:48 INDICATION: Weakness. TECHNIQUE: Magnetic resonance imaging (MRI) of the brain and brainstem was performed without intraven ous contrast. COMPARISON: Brain MRI 04/24/2015, head CT 10/08/2022 FINDINGS: There is a subdural hematoma anterior to left frontal lobe with maximum thickness of 4 mm. There are scattered areas of nonspecific increased T2-weighted signal intensity in the cerebral white matter. There is no acute ischemic infarct or abnormal mass lesion. The ventricles are normal in siz e. There is mucosal thickening and fluid in the paranasal sinuses. The orbits are normal. There are t race bilateral mastoid effusions. IMPRESSION: 1. Acute subdural hematoma anterior to left frontal lobe with maximum thickness of 4 mm. 2. Extensive nonspecific cerebral white matter disease, which likely represents chronic small vessel ischemic disease. Reviewed, dictated and finalized at location A.
--- NOTE | ~2022-10-08 | US_ITS ---
Procedure: Duplex Doppler examination of the bilateral carotids. Indication: Altered mental status, confusion Technique: Real time, color-flow and pulse wave Doppler examination of the bilateral carotids was performed. Findings: Gloria scale ultrasonography of the right neck demonstrated minimal plaque at the right carotid bulb.. There was demonstration of normal color-flow and Doppler waveforms within the right common, internal and external carotid arteries. The peak systolic velocities in the right common, internal and externa l carotid arteries were demonstrated to be 62 cm/sec, 54 cm/sec and 109 cm/sec respectively. The [facility] t ICA/CCA ratio was 1.1.The proximal right internal carotid artery demonstrates 0% stenosis relative to the normal distal artery lumen diameter. Gloria scale sonography of the left neck demonstrated no significant plaque. There was demonstration of normal color-flow and wave forms within the left common, internal and external carotid arteries. The peak systolic velocities in the left common, internal and external carotid arteries were demonstrate d to be 73cm/sec, 62 cm/sec and the cm/sec respectively. The left ICA/CCA ratio was 1.0. The proximal left internal carotid artery demonstrates 0% stenosis relative to the normal distal artery lumen kindra meter. There was antegrade flow demonstrated in the bilateral vertebral arteries. Impression: No hemodynamically significant stenosis of the bilateral internal carotid arteries. Antegrade flow in the bilateral vertebral arteries. Note: The methodology used is an indirect measurement validated against a direct method (such as the NASCET criteria) that compares diameters at the stenosis to the distal ICA. Reviewed, dictated and finalized at location . Impression: No hemodynamically significant stenosis of the bilateral internal carotid arter ies. Antegrade flow in the bilateral vertebral arteries. Note: The methodology used is an indirect measurement validated against a direct meth od (such as the NASCET criteria) that compares diameters at the stenosis to the distal ICA.
--- NOTE | 2022-10-08 13:26 | ECG_ITS ---
Measurements Intervals [place] Rate: 96 P: 15 FL: 156 QRS: -15 QRSD: 80 T: 31 QT: 321 QTc: 406 Interpretive Statements SINUS RHYTHM MINIMAL Q WAVES- ANTEROLATERAL LEADS CONSIDER INFERIOR INFARCT, AGE INDETERMINATE BASELINE ARTIFACT- I, II, AVR, AVL, AVF, V1 ABNORMAL ECG COMPARED TO ECG 08/02/2022 15:30:16 NO SIGNIFICANT CHANGES Electronically Signed On 10-08-2022 13:47:13 CDT by Erik Jordan D.O.
--- NOTE | 2022-10-08 13:31 | PC.NURSE ---
at Pt bedside at this time. reports pt has had a cough for 2 days, and feels as if pt has had increasing confusion and agitation.
[2022-10-08 13:46] LABS: Basophils Absolute Auto 0.1 K/mm3 (0.0-0.1); Basophils Percent Auto 0.4 % (0.2-1.2); Eosinophils Absolute Auto 0.3 K/mm3 (0-0.3); Eosinophils Percent Auto 2.9 % (0-4.4); Hematocrit 47.4 % (42.0-52.0); Hemoglobin 16.1 g/dL (14.0-18.0); Immature Granulocyte Absolute 0.04 K/mm3 (0.00-0.031); Immature Granulocyte Percent A 0.3 % (0-0.5); Lymphocytes Absolute Auto 2.97 K/mm3 (0.9-3.2); Lymphocytes Percent Auto 25.7 % (18.3-44.2); Mean Corpuscular Hemoglobin 30.7 pg (26-34); Mean Corpuscular Volume 90.5 fl (80-100); Mean Platelet Volume 9.6 fl (7.4-10.4); Monocytes Absolute Auto 0.7 K/mm3 (0.1-0.6); Monocytes Percent Auto 6.1 % (2.6-8.5); Neutrophils Absolute Auto 7.5 K/mm3 (1.3-6.7); Neutrophils Percent Auto 64.6 % (45.5-73.1); Platelet Count Result 283 k/mm3 (150-375); Red Blood Count 5.24 M/mm3 (4.6-6.20); Red Cell Distribution Width 12.8 % (11.5-14.5); White Blood Count 11.6 K/mm3 (4.5-10.0)
--- NOTE | 2022-10-08 13:52 | PC.NURSE ---
Pt to Xray at this time, urine to be collected upon pt return.
[2022-10-08 13:57] LABS: Alanine Aminotransferase 44 U/L (6-50); Albumin Level 4.2 g/dL (3.5-5.1); Alkaline Phosphatase 66 U/L (38-126); Anion Gap 5 mmol/L (8-16); Aspartate Amino Transferase 68 U/L (17-59); Bilirubin,Total 0.7 mg/dL (0.2-1.3); Blood Urea Nitrogen 16 mg/dL (9-20); Calcium 8.7 mg/dL (8.4-10.2); Carbon Dioxide 30 mmol/L (22-30); Chloride 104 mmol/L (98-107); Estimated CRCL calculation 63 ml/min; Estimated Glomerular Filt Rate > 60; Glucose 122 mg/dL (65-110); Potassium 3.8 mmol/L (3.4-5.0); Sodium 139 mmol/L (137-145)
--- NOTE | 2022-10-08 14:12 | ED.WEAKNESS ---
HPI - Weakness General Chief complaint: Weakness Stated complaint: weakness Time Seen by Provider: 10/08/22 13:56 Source: patient Mode of arrival: EMS Limitations: dementia History of Present Illness HPI Narrative: Patient is a 77-year-old male with a history of hypertension, hyperlipidemia, Type II DM, Alzheimer's dementia, presenting to the emergency department for evaluation of weakness. Patient's helps to provide history given the patient's degree of dementia. Patient has had cough and increasing weakness over the past 3 days per . She states that last Wednesday he attended his adult daycare session and then when she picked him up he was unable to ambulate due to weakness. This is only worsened over the weekend and so were urged by the primary care physician to seek care today. Patient's states that she is unable to lift him secondary to his weakness. She feels he has been more confused than normal. She reports cough without hemoptysis. No fever or chills. No nausea or vomiting. No reported complaint of abdominal pain. No shortness of breath that she has noticed. Denies recent sick contacts. Related Data Home Medications Medication Instructions Recorded Confirmed aspirin 81 mg tablet 81 mg PO DAILY 07/21/21 10/08/22 clopidogrel 75 mg tablet (Plavix) 75 mg PO DAILY 07/21/21 10/08/22 memantine 10 mg tablet 10 mg PO BID 07/21/21 10/08/22 metoprolol succinate 25 mg 12.5 mg PO DAILY 07/21/21 10/08/22 tablet,extended release 24 hr finasteride 5 mg tablet 5 mg PO DAILY 08/11/22 10/08/22 mirtazapine 15 mg tablet 15 mg PO QHS 08/11/22 10/08/22 rosuvastatin 20 mg tablet 20 mg PO DAILY 08/11/22 10/08/22 sertraline 150 mg capsule 150 mg PO DAILY 08/11/22 10/08/22 Allergies Allergy/AdvReac Type Severity Reaction Status Date / Time No Known Allergies Allergy Verified 10/08/22 17:41 Review of Systems Review of Systems: ROS unobtainable: Yes unobtainable due to mental status PMFSH Past Medical History Medical History Alzheimer's disease Atherosclerotic heart disease of [place] coronary artery without angina pectoris BPH (benign prostatic hyperplasia) Cigarette nicotine dependence COPD (chronic obstructive pulmonary disease) Dementia Depression Depression with anxiety Frequent falls History of CVA (cerebrovascular accident) Hypertension Idiopathic progressive neuropathy Injury of knee, right Memory deficit following cerebral infarction Mixed hyperlipidemia Old myocardial infarction Peripheral neuropathy Personal history of colonic polyps Simple chronic bronchitis Tibial plateau fracture, right Tobacco abuse Type 2 diabetes mellitus without complications Urinary incontinence Surgical History Surgical History H/O heart artery stent X5 H/O neck surgery History of fusion of cervical spine History of right hip replacement 2009 History of tonsillectomy and adenoidectomy Family History Family History Father Chronic obstructive pulmonary disease Mother Acute myocardial infarction Hypertension Heart disease Sibling Breast cancer Social History Social History (Updated 10/08/22 @ 18:30 by Isabella Nathan NP) Social History: 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 Code status DNR. Smoking packs per day: 0.5 Smoking cigarettes per day: 10.0 Years smoked: 45 Smoking pack-years: 22.50 Smoking status: Former smoker Tobacco type: cigarettes Second hand tobacco smoke exposure: No Alcohol intake: former Substance use: never Lack of Transportation: No Lack of Food: Never True Current Housing: I Have Housing Concerned About Future Housing: No Difficulty Paying Gas/Electric Bills: No Difficulty Paying for Meds: YES Currently Unemployed: No Education: Bachelor's Degree
[2022-10-08 14:36] LABS: Appearance Urine Clear (Clear); Bilirubin Urine Negative (Negative); Blood Urine Negative (Negative); Color Urine Yellow (Yellow); Glucose Urine UA Negative (Negative); Ketones Urine Negative (Negative); Leukocyte Esterase Ur Negative LEU/UL (Negative); Nitrate Urine Negative (Negative); Protein Urine Negative (Negative); Specific Grav Ur 1.022 (1.001-1.035); Urobilinogen Urine 0.2 mg/dL (<2.0); pH Urine 5.5 (5.0-9.0)
[2022-10-08 14:38] LABS: Add Urine Microscopic? NO
[2022-10-08 15:00] LABS: NT Pro B Type Natriuretic Pept 348 pg/mL (19.9-100); Troponin I 0.012 ng/mL (0.000-0.034)
[2022-10-08 15:24] LABS: Influenza A QL RT-PCR Negative (Negative); Influenza B QL RT-PCR Negative (Negative); RSV RNA, RT-PCR Negative (Negative); SARS-CoV-2 RNA PCR Negative (Negative)
--- NOTE | 2022-10-08 16:07 | PM.IMHP ---
H&P: HPI History of Present Illness Date/Time: 10/08/22 16:07 Chief Complaint: Confusion Narrative: This is a 77-year-old male patient with a history of dementia, hypertension and hyperlipidemia. The patient has been more weak this past week. The usually takes care of him and she is having difficulty taking care of him. She stated that she is having difficulty taking care of the patient the last 3 days. The patient has become more weak over the past weekend. [facility] Past Medical History Medical History (Updated 10/08/22 @ 18:39 by Isabella Nathan NP) Alzheimer's disease Atherosclerotic heart disease of [place] coronary artery without angina pectoris BPH (benign prostatic hyperplasia) Cigarette nicotine dependence COPD (chronic obstructive pulmonary disease) Dementia Depression Depression with anxiety Frequent falls History of CVA (cerebrovascular accident) Hypertension Idiopathic progressive neuropathy Injury of knee, right Memory deficit following cerebral infarction Mixed hyperlipidemia Old myocardial infarction Peripheral neuropathy Personal history of colonic polyps Simple chronic bronchitis Tibial plateau fracture, right Tobacco abuse Type 2 diabetes mellitus without complications Urinary incontinence Surgical History Surgical History (Updated 10/08/22 @ 18:29 by Isabella Nathan NP) H/O heart artery stent X5 H/O neck surgery History of fusion of cervical spine History of right hip replacement 2009 History of tonsillectomy and adenoidectomy Family History Family History (Updated 10/08/22 @ 18:28 by Isabella Nathan NP) Father Chronic obstructive pulmonary disease Mother Acute myocardial infarction Hypertension Heart disease Sibling Breast cancer Social History Social History (Updated 10/08/22 @ 18:30 by Isabella Nathan NP) Social History: 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 Code status DNR. Smoking packs per day: 0.5 Smoking cigarettes per day: 10.0 Years smoked: 45 Smoking pack-years: 22.50 Smoking status: Former smoker Tobacco type: cigarettes Second hand tobacco smoke exposure: No Alcohol intake: former Substance use: never Lack of Transportation: No Lack of Food: Never True Current Housing: I Have Housing Concerned About Future Housing: No Difficulty Paying Gas/Electric Bills: No Difficulty Paying for Meds: YES Currently Unemployed: No Education: Bachelor's Degree Difficulty w/ Childcare or Family Care: No Living arrangements: with family Occupation/Education: retired Gender identity (if verbalized by the patient): Male Sexual Orientation (if Verbalized by the Patient): Straight or Heterosexual Spiritual care concerns: No Meds Home Medications and Allergies Home Medications Medication Instructions Recorded Confirmed Type aspirin 81 mg tablet 81 mg PO DAILY 07/21/21 10/08/22 History clopidogrel 75 mg tablet (Plavix) 75 mg PO DAILY 07/21/21 10/08/22 History memantine 10 mg tablet 10 mg PO BID 07/21/21 10/08/22 History metoprolol succinate 25 mg 12.5 mg PO DAILY 07/21/21 10/08/22 History tablet,extended release 24 hr finasteride 5 mg tablet 5 mg PO DAILY 08/11/22 10/08/22 History mirtazapine 15 mg tablet 15 mg PO QHS 08/11/22 10/08/22 History rosuvastatin 20 mg tablet 20 mg PO DAILY 08/11/22 10/08/22 History sertraline 150 mg capsule 150 mg PO DAILY 08/11/22 10/08/22 History Allergies Allergy/AdvReac Type Severity Reaction Status Date / Time No Known Allergies Allergy Verified 10/08/22 17:41 Vital Signs Vital Signs - 24 hr 10/08/22 13:12 10/08/22 13:35 10/08/22 13:45 Temperature 36.9 C Pulse Rate 95 96 98 Respiratory Rate 20 Blood Pressure 128/91 H Pulse Oximetry 100 94 92 10/08/22 13:46 10/08/22 14:02 10/08/22 16:04 Temperature Pulse Rate 96 96 100 Respiratory Rate 18 Blood Pressure 130/87 138/94 H Pulse Oximetry 92 95 94 E
--- NOTE | 2022-10-08 16:53 | PC.NURSE ---
Pt has become increasingly restless and agitated in the past 2 hours. Pt has repeatedly tried to to get off stretcher. Pt placed on bed alarm at this time. is still at bedside.
--- NOTE | 2022-10-08 16:57 | PC.NURSE ---
Ordered dinner tray for pt
--- NOTE | 2022-10-08 17:39 | ADMGEN ---
This patient, Talat Zaragoza, was admitted to [facility] Surg Room 306-02. Report received from GURU Lo. Patient/family oriented to hospital policies and general routines including ID bracelet, bed and alarms, visiting hours, pain management, procedures, bathroom and other care routines, personal items, smoking policy, room service/diet, and visiting hours. Information on how to activate the Rapid Response Team has been discussed. Patient/Family are encouraged to report perceived risks to care and to ask questions if they do not understand what they are told or what they should do.
[2022-10-08] MEDS: LACTATED RINGERS 1,000 ML 125 ML IV CONT (18:14)
[2022-10-08] MEDS: FLUTICASONE PROPIONATE 0.05% NA SPR 16 GM BTL (*BKC) 1 SPRAY NASAL (20:40)
[2022-10-09] VITALS (7 sets, daily range): BP systolic 109–140; BP diastolic 57–78; PULSE 82–98; RESP 16–20; TEMP 35.9–36.9; O2SAT 94
[2022-10-09] MEDS: LACTATED RINGERS 1,000 ML 125 ML IV CONT (04:43)
[2022-10-09 06:36] LABS: Basophils Absolute Auto 0.1 K/mm3 (0.0-0.1); Basophils Percent Auto 0.5 % (0.2-1.2); Eosinophils Absolute Auto 0.2 K/mm3 (0-0.3); Eosinophils Percent Auto 1.9 % (0-4.4); Hematocrit 46.5 % (42.0-52.0); Hemoglobin 15.4 g/dL (14.0-18.0); Immature Granulocyte Absolute 0.03 K/mm3 (0.00-0.031); Immature Granulocyte Percent A 0.3 % (0-0.5); Lymphocytes Absolute Auto 2.12 K/mm3 (0.9-3.2); Lymphocytes Percent Auto 20.3 % (18.3-44.2); Mean Corpuscular HGB Conc 33.1 g/dl (32-36); Mean Corpuscular Hemoglobin 30.6 pg (26-34); Mean Corpuscular Volume 92.4 fl (80-100); Mean Platelet Volume 9.4 fl (7.4-10.4); Monocytes Absolute Auto 0.6 K/mm3 (0.1-0.6); Neutrophils Absolute Auto 7.4 K/mm3 (1.3-6.7); Platelet Count Result 253 k/mm3 (150-375); Red Blood Count 5.03 M/mm3 (4.6-6.20); Red Cell Distribution Width 12.9 % (11.5-14.5); White Blood Count 10.5 K/mm3 (4.5-10.0)
[2022-10-09 06:52] LABS: Alanine Aminotransferase 37 U/L (6-50); Albumin Level 4.1 g/dL (3.5-5.1); Alkaline Phosphatase 55 U/L (38-126); Anion Gap 8 mmol/L (8-16); Aspartate Amino Transferase 52 U/L (17-59); Bilirubin,Total 0.8 mg/dL (0.2-1.3); Blood Urea Nitrogen 14 mg/dL (9-20); Calcium 8.9 mg/dL (8.4-10.2); Carbon Dioxide 28 mmol/L (22-30); Chloride 104 mmol/L (98-107); Estimated CRCL calculation 63 ml/min; Estimated Glomerular Filt Rate > 60; Glucose 120 mg/dL (65-110); Magnesium 2.1 mg/dL (1.6-2.3); Potassium 3.8 mmol/L (3.4-5.0); Sodium 140 mmol/L (137-145)
[2022-10-09] MEDS: CLOPIDOGREL BISULFATE 75 MG TABLET PO (08:10)
[2022-10-09] MEDS: FINASTERIDE 5 MG TABLET PO (08:10)
[2022-10-09] MEDS: ROSUVASTATIN 10 MG TABLET 20 MG PO (08:10)
[2022-10-09] MEDS: ASPIRIN 81 MG ENTERIC TABLET PO (08:10)
[2022-10-09] MEDS: MEMANTINE 10 MG TABLET PO ×2 (08:10→21:15)
[2022-10-09] MEDS: SERTRALINE HCL 50 MG TABLET 150 MG PO (08:10)
[2022-10-09] MEDS: METOPROLOL SUCCINATE EXT REL 12.5 MG TABCR PO (08:10)
[2022-10-09] MEDS: FLUTICASONE PROPIONATE 0.05% NA SPR 16 GM BTL (*BKC) 1 SPRAY NASAL ×2 (08:11→21:15)
--- NOTE | 2022-10-09 11:39 | WPDNEURCNPN ---
Assessment and Plan Assessment and plan (1) Subdural hematoma: Code(s): S06.5XAA - Traumatic subdural hemorrhage with loss of consciousness status unknown, initial encounter Status: Acute (2) Dementia: Code(s): F03.90 - Unspecified dementia, unspecified severity, without behavioral disturbance, psychotic disturbance, mood disturbance, and anxiety Status: Acute (3) Gait instability: Code(s): R26.81 - Unsteadiness on feet Status: Acute Plan 1. Ongoing dementia with history of intermittent hallucination also somewhat combativeness as well along with the faculties ambulation though likely regular dementia but the possibility of the frontal lobe dementia is not clear considering that he has the gait dysfunction he should not be walking with a walker he should be wheelchair bound to avoid the falls 2. Small subdural hematoma on the left side could be the result of the recent fall advised the as well as a daughter no surgical intervention is necessary it will slowly absorbed by itself with a cane from the recent fall or because of spontaneous shrinking of the frontal lobe is not clear but again conservative treatment is necessary [facility]. [facility] have already decline to continue any further management can be done at home but all the pros and cons were discussed with family if any problem arises do not hesitate to contact us and I will obtain the routine EEG. He has been taking the Namenda and Aricept but recently has been taken off the Aricept will continue the Namenda as such Consult date: 10/09/22 HPI: Talat Zaragoza is a 77 year old maleAdmitted to the hospital through the emergency room for the complaints of generalized weakness in addition to the ongoing history of 1. Hypertension 2. Hyperlipidemia 3. Type 2 diabetes mellitus 4. Alzheimer's dementia patient's provided the information to the ER physician's patient has had cough and increasing weakness over the last 72 hours and last Wednesday he attended his adult daycare session and when she picked him up he was unable to ambulate due to the weakness she was herself unable to lift him up secondary to his weakness and he was noted limb more confused he did have cough without hemoptysis but there was no history of nausea or vomiting or any other complaints. Patient has been taking aspirin 81 mg daily, clopidogrel 75 mg daily, memantine 10 mg twice a day minute has been 15 mg at night rosuvastatin 20 mg daily and sertraline 150 mg daily. He is not allergic to any medication. There is history of nicotine dependence, idiopathic progressive neuropathy and type 2 diabetes mellitus as well, he has undergone surgery on his hard x5 placement of the stent, has history of fusion of cervical spine, at present is a former smoker with history of years smoked 45 and former alcohol intake, initial vital signs were stable he was reportedly afebrile and routine lab studies were negative chest x-ray was negative the CT scan of the head documented diffused moderate volume loss with white matter attenuation EKG was without atrial fibrillation in sinus rhythm Review of Systems Review of Systems: All systems reviewed & are unremarkable except as noted in HPI and below [facility] Past Medical History Medical History Alzheimer's disease Atherosclerotic heart disease of [place] coronary artery without angina pectoris BPH (benign prostatic hyperplasia) Cigarette nicotine dependence COPD (chronic obstructive pulmonary disease) Dementia Depression Depression with anxiety Frequent falls History of CVA (cerebrovascular accident) Hypertension Idiopathic progressive neuropathy Injury of knee, right Memory deficit following cerebral infarction Mixed hyperlipidemia Old myocardial infarction Peripheral neuropathy Personal history of colonic polyps Simple chronic bronchitis Tibial plateau fracture, right Tobacco abuse Type 2 diabe
--- NOTE | 2022-10-09 13:12 | PM.IMPN ---
Progress Note: A&P Assessment and Plan (1) Alzheimer's disease: Code(s): G30.9 - Alzheimer's disease, unspecified; F02.80 - Dementia in other diseases classified elsewhere, unspecified severity, without behavioral disturbance, psychotic disturbance, mood disturbance, and anxiety Status: Acute Assessment and Plan: Patient has become more confused and has become more difficult for the to take care of him. The patient does go to an adult daycare. The patient can no longer help with the patient. The patient has been too weak to stand up. PT and OT evaluation was greatly be appreciated. operations coordinator consult greatly be appreciated. The has tried to get the patient into programs assistant living but the patient is requiring too much care. He may need to go to rehab facility or jail. He is on Namenda. (2) Agitation due to dementia: Code(s): F03.91 - Unspecified dementia, unspecified severity, with behavioral disturbance Status: Acute Assessment and Plan: P.r.n. Ativan He is on mirtazapine and sertraline as well. (3) Mixed hyperlipidemia: Code(s): E78.2 - Mixed hyperlipidemia Status: Acute Assessment and Plan: Continue with rosuvastatin (4) Generalized weakness: Code(s): R53.1 - Weakness Status: Acute Assessment and Plan: PT OT evaluation with greatly be appreciated. operations coordinator consult was placed. (5) Depression: Code(s): F32.A - Depression, unspecified Status: Acute Assessment and Plan: Continue with sertraline. (6) History of CVA (cerebrovascular accident): Code(s): Z86.73 - Personal history of transient ischemic attack (TIA), and cerebral infarction without residual deficits Status: Acute Assessment and Plan: Continue with aspirin and Plavix. In lieu due to new acute subdural hematoma will stop aspirin Plavix. Need serial CT head. Monitor neuro status. Neurology consultation. (7) BPH (benign prostatic hyperplasia): Code(s): N40.0 - Benign prostatic hyperplasia without lower urinary tract symptoms Status: Acute Assessment and Plan: Continue with finasteride (8) Subdural hematoma: Code(s): S06.5XAA - Traumatic subdural hemorrhage with loss of consciousness status unknown, initial encounter Status: Acute Assessment and Plan: CT head along with MRI with left frontal lobe new subdural hematoma. Hold aspirin Plavix. Need serial CT head. Monitor neuro status. Neurology consultation. CT head repeat in a.m.. Monitor neuro status Subjective Date/time seen: 10/09/22 13:12 Interval history: No overnight events. Neurological status about the same. Generalized weakness. Unable to ambulate. Personality change reported. Brain MRI and CT head findings reviewed with the patient. Discussed with the neurologist as well. Review of Systems Review of Systems: All systems reviewed & are unremarkable except as noted in HPI and below Exam Narrative: GENERAL: Awake, alert, conversant HEAD: Normocephalic, atraumatic. EYES: PERRLA and EOMI. ENT: Nares clear, no rhinorrhea or epistaxis. Mucous membranes moist. NECK: Supple. CHEST: No respiratory distress, breathing even and non labored HEART: Regular rate, sinus rhythm ABDOMEN:Non distended, non tender EXTREMITIES: Normal range of motion. No edema. SKIN: Warm, dry, no rash. NEURO:No focal deficits. Alert and oriented x2, Objective Data Vital Signs Vital Signs: Vital Signs - 24 hr 10/08/22 13:35 10/08/22 13:45 10/08/22 13:46 Temperature Pulse Rate 96 98 96 Respiratory Rate Blood Pressure 130/87 Pulse Oximetry 94 92 92 Oxygen Delivery 10/08/22 14:02 10/08/22 16:04 10/08/22 17:30 Temperature Pulse Rate 96 100 Respiratory Rate 18 Blood Pressure 138/94 H Pulse Oximetry 95 94 Oxygen Delivery Room Air 10/08/22 17:30 10/08/22 20:00 10/08/22 22:00 Temperature 97.6 F 97.
--- NOTE | 2022-10-09 15:36 | WPDNEUROSGCN ---
Assessment and Plan Assessment and plan (1) Dementia: Code(s): F03.90 - Unspecified dementia, unspecified severity, without behavioral disturbance, psychotic disturbance, mood disturbance, and anxiety Status: Acute Plan HPI: Talat Zaragoza is a 77 year old male admitted to the hospital through the emergency room for the complaints of generalized weakness in addition to the ongoing history of Hypertension Hyperlipidemia type 2 diabetes mellitus and Alzheimer's dementia patient's provided the information to the ER physicians (and I obtained information from the chart) patient has had cough and increasing weakness over the last 72 hours and last Wednesday he attended his adult daycare session and when she picked him up he was unable to ambulate due to the weakness she was herself unable to lift him up secondary to his weakness and he was noted limb more confused he did have cough without hemoptysis but there was no history of nausea or vomiting or any other complaints. ? Patient has been taking aspirin 81 mg daily, clopidogrel 75 mg daily, memantine 10 mg twice a day minute has been 15 mg at night rosuvastatin 20 mg daily and sertraline 150 mg daily.? He is not allergic to any medication.? There is history of nicotine dependence, idiopathic progressive neuropathy and type 2 diabetes mellitus as well, he has undergone surgery on his hard x5 placement of the stent, has history of fusion of cervical spine, at present is a former smoker with history of years smoked 45 and former alcohol intake, initial vital signs were stable he was reportedly afebrile and routine lab studies were negative chest x-ray was negative the CT scan of the head documented diffused moderate volume loss with white matter attenuation EKG was without atrial fibrillation in sinus rhythm The ED Head CT suggested a very small right convexity subdural hematoma, also commented on on the MRI. This is very small in size. A/P The patient is a 77 year old male with SANTO who has a likely incidental finding of a trace hyperintensity on Head CT. There is no history of trauma. The patient is DNR. There is no indication for ongoing serial imaging. If there were a more signifiant suggestion of hemorrhage then antiplatelet agents could be held, but in this particular instance this would likely be higher risk than continuation. No need for further neurosurgical involvement, but call with any questions Consult date: 11/14/22 HPI: Talat Zaragoza is a 77 year old male admitted to the hospital through the emergency room for the complaints of generalized weakness in addition to the ongoing history of Hypertension Hyperlipidemia type 2 diabetes mellitus and Alzheimer's dementia patient's provided the information to the ER physicians (and I obtained information from the chart) patient has had cough and increasing weakness over the last 72 hours and last Wednesday he attended his adult daycare session and when she picked him up he was unable to ambulate due to the weakness she was herself unable to lift him up secondary to his weakness and he was noted limb more confused he did have cough without hemoptysis but there was no history of nausea or vomiting or any other complaints. ? Patient has been taking aspirin 81 mg daily, clopidogrel 75 mg daily, memantine 10 mg twice a day minute has been 15 mg at night rosuvastatin 20 mg daily and sertraline 150 mg daily.? He is not allergic to any medication.? There is history of nicotine dependence, idiopathic progressive neuropathy and type 2 diabetes mellitus as well, he has undergone surgery on his hard x5 placement of the stent, has history of fusion of cervical spine, at present is a former smoker with history of years smoked 45 and former alcohol intake, initial vital signs were stable he was reportedly afebrile and routine lab studies were negative chest x-ray was negative the CT scan of the head documented diffused moderate volume loss with white matter atte
[2022-10-09] MEDS: LACTATED RINGERS 1,000 ML 75 ML IV CONT (16:29)
[2022-10-09] MEDS: MIRTAZAPINE 15 MG TABLET PO (21:15)
[2022-10-10] VITALS (8 sets, daily range): BP systolic 126–140; BP diastolic 76–82; PULSE 72–107; RESP 16–20; TEMP 36.2–36.8; O2SAT 91–96
[2022-10-10 06:31] LABS: Basophils Absolute Auto 0.1 K/mm3 (0.0-0.1); Basophils Percent Auto 0.5 % (0.2-1.2); Eosinophils Absolute Auto 0.3 K/mm3 (0-0.3); Eosinophils Percent Auto 2.2 % (0-4.4); Hematocrit 44.8 % (42.0-52.0); Immature Granulocyte Absolute 0.06 K/mm3 (0.00-0.031); Immature Granulocyte Percent A 0.5 % (0-0.5); Lymphocytes Absolute Auto 2.41 K/mm3 (0.9-3.2); Lymphocytes Percent Auto 20.3 % (18.3-44.2); Mean Corpuscular HGB Conc 33.5 g/dl (32-36); Mean Corpuscular Hemoglobin 30.5 pg (26-34); Mean Corpuscular Volume 91.2 fl (80-100); Mean Platelet Volume 9.2 fl (7.4-10.4); Monocytes Absolute Auto 0.7 K/mm3 (0.1-0.6); Monocytes Percent Auto 6.1 % (2.6-8.5); Neutrophils Absolute Auto 8.4 K/mm3 (1.3-6.7); Neutrophils Percent Auto 70.4 % (45.5-73.1); Platelet Count Result 261 k/mm3 (150-375); Red Blood Count 4.91 M/mm3 (4.6-6.20); Red Cell Distribution Width 12.6 % (11.5-14.5); White Blood Count 11.9 K/mm3 (4.5-10.0)
[2022-10-10 06:48] LABS: Alanine Aminotransferase 34 U/L (6-50); Albumin Level 4.1 g/dL (3.5-5.1); Alkaline Phosphatase 61 U/L (38-126); Anion Gap 5 mmol/L (8-16); Aspartate Amino Transferase 48 U/L (17-59); Bilirubin,Total 0.9 mg/dL (0.2-1.3); Blood Urea Nitrogen 11 mg/dL (9-20); Carbon Dioxide 33 mmol/L (22-30); Chloride 101 mmol/L (98-107); Estimated CRCL calculation 71 ml/min; Estimated Glomerular Filt Rate > 60; Glucose 118 mg/dL (65-110); Magnesium 2.1 mg/dL (1.6-2.3); Potassium 3.9 mmol/L (3.4-5.0); Sodium 139 mmol/L (137-145)
[2022-10-10] MEDS: METOPROLOL SUCCINATE EXT REL 12.5 MG TABCR PO (08:18)
[2022-10-10] MEDS: FINASTERIDE 5 MG TABLET PO (08:18)
[2022-10-10] MEDS: MEMANTINE 10 MG TABLET PO ×2 (08:18→20:23)
[2022-10-10] MEDS: FLUTICASONE PROPIONATE 0.05% NA SPR 16 GM BTL (*BKC) 1 SPRAY NASAL ×2 (08:18→20:23)
[2022-10-10] MEDS: ROSUVASTATIN 10 MG TABLET 20 MG PO (08:18)
[2022-10-10] MEDS: SERTRALINE HCL 50 MG TABLET 150 MG PO (08:18)
--- NOTE | 2022-10-10 13:54 | PM.IMPN ---
Progress Note: A&P Assessment and Plan (1) Alzheimer's disease: Code(s): G30.9 - Alzheimer's disease, unspecified; F02.80 - Dementia in other diseases classified elsewhere, unspecified severity, without behavioral disturbance, psychotic disturbance, mood disturbance, and anxiety Status: Acute Assessment and Plan: Patient has become more confused and has become more difficult for the to take care of him. The patient does go to an adult daycare. The patient can no longer help with the patient. The patient has been too weak to stand up. PT and OT evaluation was greatly be appreciated. business operations coordinator consult greatly be appreciated. The has tried to get the patient into [facility] assistant living but the patient is requiring too much care. He may need to go to rehab facility or longterm. He is on Namenda. (2) Agitation due to dementia: Code(s): F03.91 - Unspecified dementia, unspecified severity, with behavioral disturbance Status: Acute Assessment and Plan: P.r.n. Ativan He is on mirtazapine and sertraline as well. (3) Mixed hyperlipidemia: Code(s): E78.2 - Mixed hyperlipidemia Status: Acute Assessment and Plan: Continue with rosuvastatin (4) Generalized weakness: Code(s): R53.1 - Weakness Status: Acute Assessment and Plan: PT OT evaluation with greatly be appreciated. business operations coordinator consult was placed. (5) Depression: Code(s): F32.A - Depression, unspecified Status: Acute Assessment and Plan: Continue with sertraline. (6) History of CVA (cerebrovascular accident): Code(s): Z86.73 - Personal history of transient ischemic attack (TIA), and cerebral infarction without residual deficits Status: Acute Assessment and Plan: Continue with aspirin and Plavix. In lieu due to new acute subdural hematoma aspirin Plavix held. Repeat CT head 10/10/2022 with stable bleed. Reviewed neurology and neurosurgery consult note. Small bleed conservative management recommended. Restart aspirin and Plavix. Avoid any further falls. PT OT to see (7) BPH (benign prostatic hyperplasia): Code(s): N40.0 - Benign prostatic hyperplasia without lower urinary tract symptoms Status: Acute Assessment and Plan: Continue with finasteride (8) Subdural hematoma: Code(s): S06.5XAA - Traumatic subdural hemorrhage with loss of consciousness status unknown, initial encounter Status: Acute Assessment and Plan: CT head along with MRI with left frontal lobe new subdural hematoma. Aspirin Plavix. CT head today with stable finding. No new neurological symptoms monitor neuro status. Neurology consultation. Neurosurgery consulted. Appreciate the recommendations Subjective Date/time seen: 10/10/22 13:54 Interval history: No overnight events. No new symptoms. Repeat CT stable bleed discussed with the family Review of Systems Review of Systems: All systems reviewed & are unremarkable except as noted in HPI and below Exam Narrative: GENERAL: Awake, alert, conversant HEAD: Normocephalic, atraumatic. EYES: PERRLA and EOMI. ENT: Nares clear, no rhinorrhea or epistaxis. Mucous membranes moist. NECK: Supple. CHEST: No respiratory distress, breathing even and non labored HEART: Regular rate, sinus rhythm ABDOMEN:Non distended, non tender EXTREMITIES: Normal range of motion. No edema. SKIN: Warm, dry, no rash. NEURO:No focal deficits. Alert and oriented x2, Objective Data Vital Signs Vital Signs: Vital Signs - 24 hr 10/09/22 16:00 10/09/22 21:54 10/09/22 20:00 Temperature 98.5 F Pulse Rate 85 98 98 Respiratory Rate 16 16 Blood Pressure 140/78 Pulse Oximetry 94 94 Oxygen Delivery Room Air 10/10/22 05:52 10/10/22 08:18 10/10/22 08:00 Temperature 97.1 F L Pulse Rate 84 80 97 Respiratory Rate 16 Blood Pressure 140/76 Pulse Oximetry 96 Oxygen Delivery 10/10/22
[2022-10-10] MEDS: MIRTAZAPINE 15 MG TABLET PO (20:23)
[2022-10-11] VITALS (10 sets, daily range): BP systolic 110–126; BP diastolic 68–85; PULSE 84–105; RESP 16–20; TEMP 36.5–36.8; O2SAT 94–96
[2022-10-11] MEDS: SERTRALINE HCL 50 MG TABLET 150 MG PO (08:04)
[2022-10-11] MEDS: ROSUVASTATIN 10 MG TABLET 20 MG PO (08:04)
[2022-10-11] MEDS: FLUTICASONE PROPIONATE 0.05% NA SPR 16 GM BTL (*BKC) 1 SPRAY NASAL ×2 (08:04→20:27)
[2022-10-11] MEDS: MEMANTINE 10 MG TABLET PO ×2 (08:04→20:27)
[2022-10-11] MEDS: FINASTERIDE 5 MG TABLET PO (08:05)
[2022-10-11] MEDS: CLOPIDOGREL BISULFATE 75 MG TABLET PO (08:05)
[2022-10-11] MEDS: METOPROLOL SUCCINATE EXT REL 12.5 MG TABCR PO (08:05)
[2022-10-11] MEDS: ASPIRIN 81 MG ENTERIC TABLET PO (08:05)
--- NOTE | 2022-10-11 12:26 | PCSTNOTE ---
Please refer to the Bedside Swallow Evaluation in the EMR. Please note, silent aspiration cannot be ruled out at bedside.
--- NOTE | 2022-10-11 14:02 | PM.IMPN ---
Progress Note: A&P Assessment and Plan (1) Alzheimer's disease: Code(s): G30.9 - Alzheimer's disease, unspecified; F02.80 - Dementia in other diseases classified elsewhere, unspecified severity, without behavioral disturbance, psychotic disturbance, mood disturbance, and anxiety Status: Acute Assessment and Plan: Patient has become more confused and has become more difficult for the to take care of him. The patient does go to an adult daycare. The patient can no longer help with the patient. The patient has been too weak to stand up. PT and OT evaluation was greatly be appreciated. health safety coordinator consult greatly be appreciated. The has tried to get the patient into assistant speech language pathologist living but the patient is requiring too much care. He may need to go to rehab facility or longterm. Await PT OT evaluation He is on Namenda. (2) Agitation due to dementia: Code(s): F03.91 - Unspecified dementia, unspecified severity, with behavioral disturbance Status: Acute Assessment and Plan: P.r.n. Ativan He is on mirtazapine and sertraline as well. (3) Mixed hyperlipidemia: Code(s): E78.2 - Mixed hyperlipidemia Status: Acute Assessment and Plan: Continue with rosuvastatin (4) Generalized weakness: Code(s): R53.1 - Weakness Status: Acute Assessment and Plan: PT OT evaluation with greatly be appreciated. health safety coordinator consult was placed. (5) Depression: Code(s): F32.A - Depression, unspecified Status: Acute Assessment and Plan: Continue with sertraline. (6) History of CVA (cerebrovascular accident): Code(s): Z86.73 - Personal history of transient ischemic attack (TIA), and cerebral infarction without residual deficits Status: Acute Assessment and Plan: Continue with aspirin and Plavix. In lieu due to new acute subdural hematoma aspirin Plavix held. Repeat CT head 10/10/2022 with stable bleed. Reviewed neurology and neurosurgery consult note. Small bleed conservative management recommended. Restart aspirin and Plavix. Avoid any further falls. PT OT to see (7) BPH (benign prostatic hyperplasia): Code(s): N40.0 - Benign prostatic hyperplasia without lower urinary tract symptoms Status: Acute Assessment and Plan: Continue with finasteride (8) Subdural hematoma: Code(s): S06.5XAA - Traumatic subdural hemorrhage with loss of consciousness status unknown, initial encounter Status: Acute Assessment and Plan: CT head along with MRI with left frontal lobe new subdural hematoma. Aspirin Plavix. CT head today with stable finding. No new neurological symptoms monitor neuro status. Neurology consultation. Neurosurgery consulted. Appreciate the recommendations (9) Cough: Code(s): R05.9 - Cough, unspecified Status: Acute Assessment and Plan: Will get chest x-ray start bronchodilator Possible aspiration Speech to see Discussed with speech therapist Subjective Date/time seen: 10/11/22 14:02 Interval history: No overnight events reported. Patient denies any complaints. No shortness of breath. Per nursing staff is been coughing up bed more. Swallow evaluation has been obtained. Discussed with speech therapist. He did well with the swallow evaluation Review of Systems Review of Systems: All systems reviewed & are unremarkable except as noted in HPI and below Exam Narrative: GENERAL: Awake, alert, conversant HEAD: Normocephalic, atraumatic. EYES: PERRLA and EOMI. ENT: Nares clear, no rhinorrhea or epistaxis. Mucous membranes moist NECK: Supple. Nontender CHEST: No respiratory distress, coarse breath sounds, respiration non labored HEART: Regular rate, sinus rhythm ABDOMEN:Non distended, non tender EXTREMITIES: Normal range of motion. No edema. SKIN: Warm, dry, no rash. NEURO:No focal deficits. Alert and oriented x2, Objective Data Vital Signs
[2022-10-11] MEDS: LORazepam INJ (*CRX) 2 MG/ML VIAL 0.5 MG IV PUSH (20:25)
[2022-10-11] MEDS: guaiFENesin/DEXTROMETHORPHAN 10 ML UDC PO (20:26)
[2022-10-11] MEDS: MIRTAZAPINE 15 MG TABLET PO (20:27)
[2022-10-11] MEDS: IPRATROPIUM BR 0.02% INH SOLN 0.5 MG/2.5 ML VIAL INHALATION (21:14)
[2022-10-11] MEDS: LEVALBUTEROL NEB 1.25 MG/3 ML 0.63 MG INHALATION (21:14)
[2022-10-12] VITALS (15 sets, daily range): BP systolic 104–125; BP diastolic 70–76; PULSE 80–106; RESP 16–18; TEMP 36.1–36.2; O2SAT 91–94; BMI 10.0
[2022-10-12] MEDS: guaiFENesin/DEXTROMETHORPHAN 10 ML UDC PO ×4 (04:20→20:14)
[2022-10-12] MEDS: METOPROLOL SUCCINATE EXT REL 12.5 MG TABCR PO (08:14)
[2022-10-12] MEDS: SERTRALINE HCL 50 MG TABLET 150 MG PO (08:15)
[2022-10-12] MEDS: ROSUVASTATIN 10 MG TABLET 20 MG PO (08:16)
[2022-10-12] MEDS: ASPIRIN 81 MG ENTERIC TABLET PO (08:16)
[2022-10-12] MEDS: CLOPIDOGREL BISULFATE 75 MG TABLET PO (08:16)
[2022-10-12] MEDS: MEMANTINE 10 MG TABLET PO ×2 (08:16→20:14)
[2022-10-12] MEDS: FINASTERIDE 5 MG TABLET PO (08:16)
[2022-10-12] MEDS: FLUTICASONE PROPIONATE 0.05% NA SPR 16 GM BTL (*BKC) 1 SPRAY NASAL ×2 (08:17→20:14)
[2022-10-12] MEDS: IPRATROPIUM BR 0.02% INH SOLN 0.5 MG/2.5 ML VIAL INHALATION ×3 (08:38→19:32)
[2022-10-12] MEDS: LEVALBUTEROL NEB 1.25 MG/3 ML 0.63 MG INHALATION ×3 (08:38→19:32)
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
[2022-10-12] MEDS: PIPERACILLN/TAZ 3.375GM/NS50ML 3.375 GM/50 ML BAG IVPB ×2 (17:18→23:49)
[2022-10-12] MEDS: MIRTAZAPINE 15 MG TABLET PO (20:14)
[2022-10-12] MEDS: ACETAMINOPHEN 325 MG TABLET 650 MG PO (20:14)
[2022-10-13] VITALS (10 sets, daily range): BP systolic 119–134; BP diastolic 74–89; PULSE 82–88; RESP 16–18; TEMP 36.2–36.6; O2SAT 91–96
--- NOTE | 2022-10-13 02:07 | PC.NURSE ---
secondary IV started r/t zosyn infusion unable to finish within appropriate amount of time in R AC IV. Tolerated well.
[2022-10-13] MEDS: IPRATROPIUM BR 0.02% INH SOLN 0.5 MG/2.5 ML VIAL INHALATION ×3 (02:13→19:39)
[2022-10-13] MEDS: LEVALBUTEROL NEB 1.25 MG/3 ML 0.63 MG INHALATION ×3 (02:13→19:39)
[2022-10-13] MEDS: PIPERACILLN/TAZ 3.375GM/NS50ML 3.375 GM/50 ML BAG IVPB ×3 (05:05→17:29)
[2022-10-13] MEDS: guaiFENesin/DEXTROMETHORPHAN 10 ML UDC PO (05:09)
[2022-10-13 06:27] LABS: Basophils Absolute Auto 0.1 K/mm3 (0.0-0.1); Basophils Percent Auto 0.6 % (0.2-1.2); Eosinophils Absolute Auto 0.5 K/mm3 (0-0.3); Eosinophils Percent Auto 5.2 % (0-4.4); Hematocrit 47.5 % (42.0-52.0); Hemoglobin 15.6 g/dL (14.0-18.0); Immature Granulocyte Absolute 0.05 K/mm3 (0.00-0.031); Immature Granulocyte Percent A 0.5 % (0-0.5); Lymphocytes Absolute Auto 2.62 K/mm3 (0.9-3.2); Lymphocytes Percent Auto 27.3 % (18.3-44.2); Mean Corpuscular HGB Conc 32.8 g/dl (32-36); Mean Corpuscular Hemoglobin 30.5 pg (26-34); Mean Corpuscular Volume 92.8 fl (80-100); Mean Platelet Volume 9.4 fl (7.4-10.4); Monocytes Absolute Auto 0.6 K/mm3 (0.1-0.6); Neutrophils Absolute Auto 5.8 K/mm3 (1.3-6.7); Neutrophils Percent Auto 60.4 % (45.5-73.1); Platelet Count Result 337 k/mm3 (150-375); Red Blood Count 5.12 M/mm3 (4.6-6.20); Red Cell Distribution Width 12.6 % (11.5-14.5); White Blood Count 9.6 K/mm3 (4.5-10.0)
[2022-10-13 06:42] LABS: Alanine Aminotransferase 29 U/L (6-50); Albumin Level 3.9 g/dL (3.5-5.1); Alkaline Phosphatase 60 U/L (38-126); Anion Gap 11 mmol/L (8-16); Aspartate Amino Transferase 41 U/L (17-59); Bilirubin,Total 0.8 mg/dL (0.2-1.3); Blood Urea Nitrogen 10 mg/dL (9-20); Calcium 8.7 mg/dL (8.4-10.2); Carbon Dioxide 23 mmol/L (22-30); Chloride 103 mmol/L (98-107); Estimated CRCL calculation 63 ml/min; Estimated Glomerular Filt Rate > 60; Glucose 138 mg/dL (65-110); Magnesium 2.6 mg/dL (1.6-2.3); Potassium 3.7 mmol/L (3.4-5.0); Sodium 137 mmol/L (137-145)
[2022-10-13] MEDS: ROSUVASTATIN 10 MG TABLET 20 MG PO (08:17)
[2022-10-13] MEDS: MEMANTINE 10 MG TABLET PO (08:17)
[2022-10-13] MEDS: FLUTICASONE PROPIONATE 0.05% NA SPR 16 GM BTL (*BKC) 1 SPRAY NASAL ×2 (08:17→20:20)
[2022-10-13] MEDS: SERTRALINE HCL 50 MG TABLET 150 MG PO (08:17)
[2022-10-13] MEDS: CLOPIDOGREL BISULFATE 75 MG TABLET PO (08:18)
[2022-10-13] MEDS: ASPIRIN 81 MG ENTERIC TABLET PO (08:18)
[2022-10-13] MEDS: FINASTERIDE 5 MG TABLET PO (08:18)
[2022-10-13] MEDS: METOPROLOL SUCCINATE EXT REL 12.5 MG TABCR PO (08:18)
--- NOTE | 2022-10-13 10:29 | PCSTNOTE ---
Please refer to the Modified Barium Swallow Evaluation in the EMR.
--- NOTE | 2022-10-13 14:46 | PM.IMPN ---
Progress Note: A&P Assessment and Plan (1) Alzheimer's disease: Code(s): G30.9 - Alzheimer's disease, unspecified; F02.80 - Dementia in other diseases classified elsewhere, unspecified severity, without behavioral disturbance, psychotic disturbance, mood disturbance, and anxiety Status: Acute Assessment and Plan: Patient has become more confused and has become more difficult for the to take care of him. The patient does go to an adult daycare. The patient can no longer help with the patient. The patient has been too weak to stand up. PT and OT evaluation was greatly be appreciated. informatics coordinator consult greatly be appreciated. The has tried to get the patient into assistant press operator living but the patient is requiring too much care. He may need to go to rehab facility or senior care. PT OT EVALUATED NEEDS CARE HOME HOME PLACEMENT He is on Namenda. (2) Agitation due to dementia: Code(s): F03.91 - Unspecified dementia, unspecified severity, with behavioral disturbance Status: Acute Assessment and Plan: P.r.n. Ativan He is on mirtazapine and sertraline as well. (3) Mixed hyperlipidemia: Code(s): E78.2 - Mixed hyperlipidemia Status: Acute Assessment and Plan: Continue with rosuvastatin (4) Generalized weakness: Code(s): R53.1 - Weakness Status: Acute Assessment and Plan: PT OT evaluation with greatly be appreciated. informatics coordinator consult was placed. (5) Depression: Code(s): F32.A - Depression, unspecified Status: Acute Assessment and Plan: Continue with sertraline. (6) History of CVA (cerebrovascular accident): Code(s): Z86.73 - Personal history of transient ischemic attack (TIA), and cerebral infarction without residual deficits Status: Acute Assessment and Plan: Continue with aspirin and Plavix. In lieu due to new acute subdural hematoma aspirin Plavix held. Repeat CT head 10/10/2022 with stable bleed. Reviewed neurology and neurosurgery consult note. Small bleed conservative management recommended. Restart aspirin and Plavix. Avoid any further falls. PT OT to see next placement (7) BPH (benign prostatic hyperplasia): Code(s): N40.0 - Benign prostatic hyperplasia without lower urinary tract symptoms Status: Acute Assessment and Plan: Continue with finasteride (8) Subdural hematoma: Code(s): S06.5XAA - Traumatic subdural hemorrhage with loss of consciousness status unknown, initial encounter Status: Acute Assessment and Plan: CT head along with MRI with left frontal lobe new subdural hematoma. Aspirin Plavix. CT head today with stable finding. No new neurological symptoms monitor neuro status. Neurology consultation. Neurosurgery consulted. Appreciate the recommendations (9) Cough: Code(s): R05.9 - Cough, unspecified Status: Acute Assessment and Plan: SHE CHEST X-RAY WITH BILATERAL CHRONIC INTERSTITIAL LUNG DISEASE. STARTED ON BRONCHODILATOR Possible aspiration Speech IS EVALUATED DISCUSSED WITH SPEECH WILL DO MBS Started on Zosyn 10/12/2022 MBS with aspiration with all consistencies Speech to continue to follow Subjective Date/time seen: 10/13/22 14:46 Interval history: He underwent modified barium swallow study today. Has an ongoing aspiration to all consistencies. No other overnight events reported. Discussed with the nursing staff. Intermittent cough persist. Labs were reviewed. Review of Systems Review of Systems: All systems reviewed & are unremarkable except as noted in HPI and below Exam Narrative: GENERAL: Awake, alert, conversant HEAD: Normocephalic, atraumatic. EYES: PERRLA and EOMI. ENT: Nares clear, no rhinorrhea or epistaxis. Mucous membranes moist NECK: Supple. Nontender CHEST: No respiratory distress, coarse breath sounds, respiration non labored HEART: Regular rate, sinus rhythm ABDOMEN:Non
[2022-10-14] VITALS (10 sets, daily range): BP systolic 105–132; BP diastolic 74–88; PULSE 87–92; RESP 18–20; TEMP 36.1–36.2; O2SAT 92–95
[2022-10-14] MEDS: IPRATROPIUM BR 0.02% INH SOLN 0.5 MG/2.5 ML VIAL INHALATION ×4 (02:00→20:16)
[2022-10-14] MEDS: LEVALBUTEROL NEB 1.25 MG/3 ML 0.63 MG INHALATION ×4 (02:00→20:15)
[2022-10-14] MEDS: PIPERACILLN/TAZ 3.375GM/NS50ML 3.375 GM/50 ML BAG IVPB ×3 (05:30→18:17)
[2022-10-14 06:57] LABS: Basophils Absolute Auto 0.1 K/mm3 (0.0-0.1); Basophils Percent Auto 0.7 % (0.2-1.2); Eosinophils Absolute Auto 0.5 K/mm3 (0-0.3); Eosinophils Percent Auto 5.4 % (0-4.4); Hematocrit 44.2 % (42.0-52.0); Hemoglobin 14.9 g/dL (14.0-18.0); Immature Granulocyte Absolute 0.05 K/mm3 (0.00-0.031); Immature Granulocyte Percent A 0.5 % (0-0.5); Lymphocytes Absolute Auto 2.11 K/mm3 (0.9-3.2); Mean Corpuscular HGB Conc 33.7 g/dl (32-36); Mean Corpuscular Hemoglobin 30.4 pg (26-34); Mean Corpuscular Volume 90.2 fl (80-100); Mean Platelet Volume 9.3 fl (7.4-10.4); Monocytes Absolute Auto 0.6 K/mm3 (0.1-0.6); Monocytes Percent Auto 6.7 % (2.6-8.5); Neutrophils Absolute Auto 6.2 K/mm3 (1.3-6.7); Neutrophils Percent Auto 64.7 % (45.5-73.1); Platelet Count Result 355 k/mm3 (150-375); Red Cell Distribution Width 12.5 % (11.5-14.5); White Blood Count 9.6 K/mm3 (4.5-10.0)
--- NOTE | 2022-10-14 07:04 | PC.NURSE ---
[facility] downtime beginning 10/13/22 at 2145 through 10/14/22 at 0615.
[2022-10-14 07:18] LABS: Alanine Aminotransferase 29 U/L (6-50); Alkaline Phosphatase 57 U/L (38-126); Anion Gap 4 mmol/L (8-16); Aspartate Amino Transferase 38 U/L (17-59); Bilirubin,Total 0.6 mg/dL (0.2-1.3); Blood Urea Nitrogen 12 mg/dL (9-20); Carbon Dioxide 32 mmol/L (22-30); Chloride 104 mmol/L (98-107); Estimated CRCL calculation 63 ml/min; Estimated Glomerular Filt Rate > 60; Glucose 118 mg/dL (65-110); Magnesium 2.3 mg/dL (1.6-2.3); Potassium 3.5 mmol/L (3.4-5.0); Sodium 140 mmol/L (137-145)
--- NOTE | 2022-10-14 12:13 | PM.IMPN ---
Progress Note: A&P Assessment and Plan (1) Alzheimer's disease: Code(s): G30.9 - Alzheimer's disease, unspecified; F02.80 - Dementia in other diseases classified elsewhere, unspecified severity, without behavioral disturbance, psychotic disturbance, mood disturbance, and anxiety Status: Acute Assessment and Plan: Appreciate neurology input. PT OT EVALUATED NEEDS INTERMEDIATE HOME PLACEMENT He is on Namenda. (2) Aspiration into airway: Code(s): T17.908A - Unspecified foreign body in respiratory tract, part unspecified causing other injury, initial encounter Status: Acute Assessment and Plan: Patient had modified barium swallow which showed aspiration. Since patient has dementia, I discussed with his extensively about possibility of PEG tube placement. also asked about hospice which was explained in details. For now continue NPO status (3) Mixed hyperlipidemia: Code(s): E78.2 - Mixed hyperlipidemia Status: Acute Assessment and Plan: Continue with rosuvastatin (4) Generalized weakness: Code(s): R53.1 - Weakness Status: Acute Assessment and Plan: PT OT evaluation coordinator cardiopulmonary services consult was placed. (5) Depression: Code(s): F32.A - Depression, unspecified Status: Acute Assessment and Plan: Continue with sertraline. (6) History of CVA (cerebrovascular accident): Code(s): Z86.73 - Personal history of transient ischemic attack (TIA), and cerebral infarction without residual deficits Status: Acute Assessment and Plan: Continue with aspirin and Plavix. In lieu due to new acute subdural hematoma aspirin Plavix held. Repeat CT head 10/10/2022 with stable bleed. Reviewed neurology and neurosurgery consult note. Small bleed conservative management recommended. Restart aspirin and Plavix. Avoid any further falls. PT OT to see for placement (7) BPH (benign prostatic hyperplasia): Code(s): N40.0 - Benign prostatic hyperplasia without lower urinary tract symptoms Status: Acute Assessment and Plan: Continue with finasteride (8) Subdural hematoma: Code(s): S06.5XAA - Traumatic subdural hemorrhage with loss of consciousness status unknown, initial encounter Status: Acute Assessment and Plan: CT head along with MRI with left frontal lobe new subdural hematoma. Aspirin Plavix. CT head today with stable finding. No new neurological symptoms monitor neuro status. Neurology consultation. Neurosurgery consulted. Appreciate the recommendations Subjective Date/time seen: 10/14/22 12:13 Interval history: Patient resting in chair. Review of Systems Review of Systems: All systems reviewed & are unremarkable except as noted in HPI and below Exam Narrative: GENERAL: Awake, alert, conversant HEAD: Normocephalic, atraumatic. EYES: PERRLA and EOMI. ENT: Nares clear, no rhinorrhea or epistaxis. Mucous membranes moist NECK: Supple. Nontender CHEST: No respiratory distress, coarse breath sounds, respiration non labored HEART: Regular rate, sinus rhythm ABDOMEN:Non distended, non tender EXTREMITIES: Normal range of motion. No edema. SKIN: Warm, dry, no rash. NEURO:No focal deficits. Alert and oriented x2, Objective Data Vital Signs Vital Signs: Vital Signs - 24 hr 10/13/22 14:02 10/13/22 14:00 10/13/22 14:22 Temperature 97.2 F L Pulse Rate 86 87 Respiratory Rate 18 16 18 Blood Pressure 119/89 Pulse Oximetry 96 Oxygen Delivery 10/13/22 19:38 10/13/22 19:44 10/13/22 22:00 Temperature 97.2 F L Pulse Rate 82 87 Respiratory Rate 18 18 18 Blood Pressure 132/74 Pulse Oximetry 93 Oxygen Delivery 10/14/22 06:00 10/13/22 20:00 10/14/22 07:49 Temperature 97.2 F L Pulse Rate 87 91 Respiratory Rate 18 18 Blood Pressure 132/74 Pulse Oximetry 93 Oxygen Delivery Room Air 10/14/22 07:52 10/14/22 07:57 Temperature P
[2022-10-14] MEDS: FLUTICASONE PROPIONATE 0.05% NA SPR 16 GM BTL (*BKC) 1 SPRAY NASAL (21:34)
[2022-10-15] MEDS: IPRATROPIUM BR 0.02% INH SOLN 0.5 MG/2.5 ML VIAL INHALATION ×3 (01:07→13:37)
[2022-10-15] MEDS: LEVALBUTEROL NEB 1.25 MG/3 ML 0.63 MG INHALATION ×3 (01:07→13:37)
[2022-10-15] MEDS: PIPERACILLN/TAZ 3.375GM/NS50ML 3.375 GM/50 ML BAG IVPB ×2 (01:10→05:10)
[2022-10-15 06:00] VITALS: BP 126/86; PULSE 87; RESP 18; TEMP 36.2; O2SAT 95
[2022-10-15 07:15] VITALS: PULSE 89; RESP 18; O2SAT 92
[2022-10-15 07:30] VITALS: PULSE 88; RESP 18
[2022-10-15] MEDS: FLUTICASONE PROPIONATE 0.05% NA SPR 16 GM BTL (*BKC) 1 SPRAY NASAL (08:23)
--- NOTE | 2022-10-15 10:30 | PCOTNOTE ---
Attempted to see Patient at this time. Patient's informed therapist that they just made her a comfort care/hospice Patient. Patient was not seen at this time.
--- NOTE | 2022-10-15 10:39 | PCSTNOTE ---
Attempted ST session for dysphagia but pt recently placed on comfort measures. Pt and his were asked if they had any questions for ST. They were receptive to recommendation to sit upright for any oral intake attempts. It was reported pt just tried soda and coughed and was noted to be in a reclined position in bed. His voiced understanding for best positioning.
--- NOTE | 2022-10-15 10:59 | PM.IMPN ---
Progress Note: A&P Assessment and Plan (1) Alzheimer's disease: Code(s): G30.9 - Alzheimer's disease, unspecified; F02.80 - Dementia in other diseases classified elsewhere, unspecified severity, without behavioral disturbance, psychotic disturbance, mood disturbance, and anxiety Status: Acute Assessment and Plan: Comfort care (2) Aspiration into airway: Code(s): T17.908A - Unspecified foreign body in respiratory tract, part unspecified causing other injury, initial encounter Status: Acute Assessment and Plan: Patient had modified barium swallow which showed aspiration. Since patient has dementia, I discussed with his extensively about possibility of PEG tube placement. also asked about hospice which was explained in details. Patient's who is also his POA has decided against PEG tube and opted for comfort care. Comfort care orders have been initiated (3) Mixed hyperlipidemia: Code(s): E78.2 - Mixed hyperlipidemia Status: Acute (4) Depression: Code(s): F32.A - Depression, unspecified Status: Acute Assessment and Plan: Continue with sertraline. (5) History of CVA (cerebrovascular accident): Code(s): Z86.73 - Personal history of transient ischemic attack (TIA), and cerebral infarction without residual deficits Status: Acute Assessment and Plan: Patient is now comfort care (6) BPH (benign prostatic hyperplasia): Code(s): N40.0 - Benign prostatic hyperplasia without lower urinary tract symptoms Status: Acute Assessment and Plan: Continue with finasteride (7) Subdural hematoma: Code(s): S06.5XAA - Traumatic subdural hemorrhage with loss of consciousness status unknown, initial encounter Status: Acute Assessment and Plan: CT head along with MRI with left frontal lobe new subdural hematoma. Neurology consultation. Neurosurgery consulted. Appreciate the recommendations Subjective Date/time seen: 10/15/22 10:59 Interval history: No change in patient's status overnight Review of Systems Review of Systems: All systems reviewed & are unremarkable except as noted in HPI and below Exam Narrative: GENERAL: Awake, alert, conversant HEAD: Normocephalic, atraumatic. EYES: PERRLA and EOMI. ENT: Nares clear, no rhinorrhea or epistaxis. Mucous membranes moist NECK: Supple. Nontender CHEST: No respiratory distress, coarse breath sounds, respiration non labored HEART: Regular rate, sinus rhythm ABDOMEN:Non distended, non tender EXTREMITIES: Normal range of motion. No edema. SKIN: Warm, dry, no rash. NEURO:No focal deficits. Awake but not oriented Objective Data Vital Signs Vital Signs: Vital Signs - 24 hr 10/14/22 14:00 10/14/22 14:25 10/14/22 14:32 Temperature 97.0 F L Pulse Rate 87 90 92 Respiratory Rate 20 18 18 Blood Pressure 105/83 Pulse Oximetry 93 Oxygen Delivery Fraction of Inspired Oxygen 10/14/22 20:17 10/14/22 20:18 10/14/22 21:23 Temperature 97 F L Pulse Rate 87 92 Respiratory Rate 18 18 Blood Pressure 114/88 Pulse Oximetry 92 95 Oxygen Delivery Room Air Fraction of Inspired Oxygen 10/14/22 20:00 10/15/22 06:00 10/15/22 07:15 Temperature 97.1 F L Pulse Rate 87 89 Respiratory Rate 18 18 Blood Pressure 126/86 Pulse Oximetry 95 92 Oxygen Delivery Room Air Room Air Fraction of Inspired Oxygen 21 10/15/22 07:15 10/15/22 07:30 Temperature Pulse Rate 89 88 Respiratory Rate 18 18 Blood Pressure Pulse Oximetry Oxygen Delivery Fraction of Inspired Oxygen Intake/Output Intake/Output: Intake & Output 10/12/22 10/13/22 10/14/22 10/15/22 23:59 23:59 23:59 23:59 Intake Total 360 / 360 536 / 536 150 / 150 50 / 50 Balance 360 / 360 536 / 536 150 / 150 50 / 50 Meds/Results Medications: Active Medications Generic Name Dose Route Start Last Admin Trade Name Freq PRN Reason Stop Dose Admin
[2022-10-15 13:37] VITALS: PULSE 89; RESP 20
[2022-10-15 13:52] VITALS: PULSE 93; RESP 20
[2022-10-15 14:00] VITALS: BP 137/78; PULSE 97; RESP 18; TEMP 36; O2SAT 97
--- NOTE | 2022-10-15 14:04 | PM.DS ---
DS: Admitting Diagnosis Discharge Date 10/15/2022 Admitting Diagnosis Alzheimer's dementia Aspiration pneumonia DS: Discharge Diagnosis Discharge Diagnosis (1) Hospice care patient: Code(s): Z51.5 - Encounter for palliative care Status: Acute DS: Summary Hospital Course Hospital Course: (1) Alzheimer's disease: Comfort care (2) Aspiration into airway: Patient had modified barium swallow which showed aspiration.? Since patient has dementia, I discussed with his extensively about possibility of PEG tube placement.? also asked about hospice which was explained in details.? Patient's who is also his POA has decided against PEG tube and opted for comfort care.? Comfort care orders have been initiated (3) History of CVA (cerebrovascular accident): Patient is now comfort care (4) BPH (benign prostatic hyperplasia): Continue with finasteride (5) Subdural hematoma: CT head along with MRI with left frontal lobe new subdural hematoma.? Neurology consultation.? Neurosurgery consulted.? Appreciate the recommendations Patient has been placed on comfort care orders. Hospice agency has been notified. Patient is being discharged to assisted with hospice. Patient's is in agreement. Time Spent with Patient Time attestation: Total time spent providing and/or coordinating discharge services: Exam Narrative: GENERAL: Awake, alert, conversant HEAD: Normocephalic, atraumatic. EYES: PERRLA and EOMI. ENT: Nares clear, no rhinorrhea or epistaxis. Mucous membranes moist NECK: Supple. Nontender CHEST: No respiratory distress, coarse breath sounds, respiration non labored HEART: Regular rate, sinus rhythm ABDOMEN:Non distended, non tender EXTREMITIES: Normal range of motion. No edema. SKIN: Warm, dry, no rash. NEURO:No focal deficits. Awake but not oriented Discharge Plan Discharge Consulting providers: Farhan Roe Sarah J. Discharging Clinician: Javed Castillo Anticipated Discharge Date/Time: 10/15/22 14:02 Patient Disposition: Hospice - Medical Facility Activity: no preference Diet: regular Patient Instructions: Weakness (GEN) Stand Alone Forms: General Discharge Information Follow-up/Referrals: Cristo Charles MD [Primary Care Provider] - Discharge Medications: New acetaminophen [Mapap (acetaminophen)] 325 mg Tablet 650 mg PO Q4H PRN (Reason: Mild Pain (1-3) Or Fever) Qty: 30 0RF Continued mirtazapine 15 mg tablet 15 mg PO QHS finasteride 5 mg tablet 5 mg PO DAILY Discontinued sertraline 150 mg capsule 150 mg PO DAILY rosuvastatin 20 mg tablet 20 mg PO DAILY memantine 10 mg tablet 10 mg PO BID metoprolol succinate 25 mg tablet extended release 24 hr 12.5 mg PO DAILY clopidogrel [Plavix] 75 mg Tablet 75 mg PO DAILY aspirin 81 mg Tablet 81 mg PO DAILY Date of admission: 10/09/22 14:11 Primary Care Provider: Cristo Charles Admitting Provider: Edward Abbott Attending physician on admission: Javed Castillo Condition: Stable
== END 2022-10-15 15:35 | disposition hospice, inpatient (51) | DRG 56 ==
LOC: ANHED 15:58 → ANH3MEDSUR 16:57
PROVIDERS: Emergency Medicine; Internal Medicine; Nurse Practitioner; Admitting Provider Chiropractor; Emergency Provider Emergency Medicine; PCP Family Medicine; Visit Provider Hospitalist
DX: G30.9 Alzheimer's disease, unspecified (principal); S06.5XAA Traumatic subdural hemorrhage with loss of consciousness status unknown, initial encounter; F02.818 Dementia in other diseases classified elsewhere, unspecified severity, with other behavioral disturbance; N40.0 Benign prostatic hyperplasia without lower urinary tract symptoms; T17.990A Other foreign object in respiratory tract, part unspecified in causing asphyxiation, initial encounter; Z20.822 Contact with and (suspected) exposure to COVID-19; I10 Essential (primary) hypertension; W19.XXXA Unspecified fall, initial encounter; E11.42 Type 2 diabetes mellitus with diabetic polyneuropathy; I25.10 Atherosclerotic heart disease of native coronary artery without angina pectoris; J44.9 Chronic obstructive pulmonary disease, unspecified; F41.8 Other specified anxiety disorders; G60.3 Idiopathic progressive neuropathy; E78.2 Mixed hyperlipidemia; Z96.641 Presence of right artificial hip joint; Z87.891 Personal history of nicotine dependence; Z51.5 Encounter for palliative care; Z79.82 Long term (current) use of aspirin; Z86.73 Personal history of transient ischemic attack (TIA), and cerebral infarction without residual deficits; I25.2 Old myocardial infarction; Z95.5 Presence of coronary angioplasty implant and graft; Z98.1 Arthrodesis status; Z66 Do not resuscitate
CPT/HCPCS: 36415; 70450; 70551; 71045; 71046; 80053; 81003; 83605; 83735; 83880; 84443; 84484; 85025; 87637; 92526; 92610; 92611; 93005; 93880; 94640; 96360; 96361; 97110; 97161; 97165; 97530; 99285; A9270; G0378; J2060; J2543; J7120